=== PATIENT | female | born 1945 | race Caucasian/White ===

== ENCOUNTER 2018-07-03 02:23 | Inpatient (IN) ==
[2018-07-03] MEDS ORDERED: Pantoprazole Inj 80 MG in Sodium Chlor 0.9% Inj 50 ML IV.SIG ONE (02:52)
[2018-07-03 03:22] LABS: Baso % (Auto) 0.2 % (0.0-2.0); Eos % (Auto) 0.1 % (0.0-4.0); Hemoglobin 9.4 gm/dL (11.6-15.3); Lymph # (Auto) 0.7 th/mm3 (1.0-4.8); Lymph % (Auto) 3.4 % (9.0-44.0); Mean Corpuscular HGB Conc 31.3 % (32.0-36.0); Mean Corpuscular Hemoglobin 25.1 pg (27.0-34.0); Mean Corpuscular Volume 80.2 fL (80.0-100.0); Mean Platelet Volume 8.6 fL (7.0-11.0); Mono % (Auto) 4.7 % (0.0-8.0); Neut # (Auto) 19.8 th/mm3 (1.8-7.7); Neut % (Auto) 91.6 % (16.0-70.0); Platelet Count 223 th/mm3 (150-450); Red Blood Count 3.74 mil/mm3 (4.00-5.30); Red Cell Distribution Width 16.9 % (11.6-17.2); White Blood Count 21.6 th/mm3 (4.0-11.0)
--- NOTE | 2018-07-03 03:27 | ED ---
HPI General Chief complaint: GI Bleed Stated complaint: medical Time Seen by Provider: 07/03/18 02:40 Source: patient, EMS, RN notes reviewed and old records reviewed Mode of arrival: EMS Limitations: other (poor historian) History of Present Illness HPI Narrative: 72-year-old female presents by ambulance with history of 102 fever and coffee-ground emesis. When they arrived on scene her oxygen saturation was in the 70s. Patient denies any concurrent complaints and states she does not remember throwing up before. History is limited from patient. Related Data Allergies Allergy/AdvReac Type Severity Reaction Status Date / Time adhesive Allergy Severe Unverified 06/02/17 15:29 PAPER TAPE/RAW SKIN Allergy Mild Uncoded 10/18/03 07:54 Review of Systems ROS Unobtainable ROS Unobtainable: other (poor historian) PMFSH History History Provided By: Document Examiner / EMT (COPD) Social History Social History Substance History: No History of Abuse Smoking Status: Former smoker Tobacco Type: Cigarettes How Often Do You Have a Drink Containing Alcohol: Never Immunization History Tetanus Immunization: >5 Years Hx Influenza Vaccine This Season: No Exam Narrative Exam Narrative: GENERAL: 72 y/o female in no apparent distress SKIN: Focused skin assessment warm/dry. HEAD: Atraumatic. Normocephalic. EYES: Pupils equal and round. No scleral icterus. No injection or drainage. ENT: No nasal bleeding or discharge. Mucous membranes pink and moist. NECK: Trachea midline. No JVD. CARDIOVASCULAR: Regular rate and rhythm. RESPIRATORY: No accessory muscle use. Clear to auscultation. Breath sounds equal bilaterally. GASTROINTESTINAL: Abdomen soft, diffusely ttp, nondistended. no rebound MUSCULOSKELETAL: No obvious deformities. No clubbing. No cyanosis. No edema. NEUROLOGICAL: Awake. moevs all extremities. Normal speech. Course Reevaluation(s) Reevaluation #1: Imaging shows diverticulitis and pneumonia. Given broad- spectrum coverage with vancomycin and Zosyn. Patient has elevated lactate, leukocytosis, tachycardia but blood pressure is stable. Patient was also given Protonix and octreotide given report of coffee-ground emesis. Her hemoglobins will need to be trended. Patient's troponin is elevated but she has no active chest pain. Will hold aspirin given report of coffee-ground emesis and setting of above. She agrees to admission for further care Consultations Consultation #1: dr ruiz agrees to admit Initial Documented Vital Signs Pulse Rate 105 H 07/03/18 02:30 Respiratory Rate 27 H 07/03/18 02:30 Blood Pressure 136/68 07/03/18 02:30 Pulse Oximetry 100 07/03/18 02:30 Last Documented Vital Signs Pulse Rate 105 H 07/03/18 05:05 Respiratory Rate 20 07/03/18 05:05 Blood Pressure 118/57 L 07/03/18 05:05 Pulse Oximetry 91 L 07/03/18 05:05 Medical Decision Making MDM Narrative Medical decision making narrative: will check labs, imaging and place on protonix and octrotide while following testing Medical Screen Exam Complete: Yes Emergency Medical Condition: Yes Differential Diagnosis Differential Diagnosis: anemia, gi bleed, pneumonia, uti.... Lab Data Lab results reviewed: Yes I reviewed the patient's lab results. Result diagrams: 07/03/18 03:00 07/03/18 03:00 Lab Results 07/03/18 07/03/18 07/03/18 Range/Units 03:00 03:00 03:00 WBC (4.0-11.0) th/mm3 RBC (4.00-5.30) mil/mm3 Hgb (11.6-15.3) gm/dL Hct (35.0-46.0) % MCV (80.0-100.0) fL MCH (27.0-34.0) pg MCHC (32.0-36.0) % RDW (11.6-17.2) % Plt Count (150-450) th/mm3 MPV (7.0-11.0) fL Neut % (Auto) (16.0-70.0) % Lymph % (Auto) (9.0-44.0) % [place] % (Auto) (0.0-8.0) % Eos % (Auto) (0.0-4.0) % Baso % (Auto) (0.0-2.0) % Neut # (Auto) (1.8-7.7) th/mm3 Lymph # (Auto) (1.0-4.8) th/mm3 [place] # (Auto) (0.0-0.9) th/mm3 Eos # (Auto) (0.0-0.4) th/mm3 Baso # (Auto) (0.0-0.2) th/mm3 WBC Differential Differential Comment PT 10.8 (9.8-11.6) sec INR 1.1 Ratio APTT 21.2 L (24.3-30.1) sec Sodium 147 H (136-145) meq/L Potassium 3.7 (3.5-5.1) meq/L Chloride 113 H (98-107) meq/L Carbon Dioxide 25.4 (21.0-32.0) meq/L Anion Gap 9 (5-15) meq/L BUN 28 H (7-18) mg/dL Creatinine 0.92 (0.50-1.00) mg/dL Estimated GFR 60 L (>89) mL/min Random Glucose 100 (74-106) mg/dL Lactic Acid (0.4-2.0) mmol/L Calcium 7.4 L* (8.5-10.1) mg/dL Prot Corrected Calcium 8.2 L (8.5-10.1) mg/dL Magnesium 1.8 (1.5-2.5) mg/dL Total Bilirubin 0.2 (0.2-1.0) mg/dL AST 23 (15-37) U/L ALT 17 (10-53) U/L Alkaline Phosphatase 30 L (45-117) U/L Ammonia 14 (11-32) mcmol/L Troponin I 0.48 H (0.02-0.05) ng/mL Total Protein 5.7 L (6.4-8.2) g/dL Albumin 2.3 L (3.4-5.0) g/dL Blood Type Blood Type Recheck Antibody Screen 07/03/18 07/03/18 07/03/18 Range/Units 03:00 03:00 03:00 WBC 21.6 H (4.0-11.0) th/mm3 RBC 3.74 L (4.00-5.30) mil/mm3 Hgb 9.4 L (11.6-15.3) gm/dL Hct 30.0 L (35.0-46.0) % MCV 80.2 (80.0-100.0) fL MCH 25.1 L (27.0-34.0) pg MCHC 31.3 L (32.0-36.0) % RDW 16.9 (11.6-17.2) % Plt Count 223 (150-450) th/mm3 MPV 8.6 (7.0-11.0) fL Neut % (Auto) 91.6 H (16.0-70.0) % Lymph % (Auto) 3.4 L (9.0-44.0) % [place] % (Auto) 4.7 (0.0-8.0) % Eos % (Auto) 0.1 (0.0-4.0) % Baso % (Auto) 0.2 (0.0-2.0) % Neut # (Auto) 19.8 H (1.8-7.7) th/mm3 Lymph # (Auto) 0.7 L (1.0-4.8) th/mm3 [place] # (Auto) 1.0 H (0.0-0.9) th/mm3 Eos # (Auto) 0.0 (0.0-0.4) th/mm3 Baso # (Auto) 0.0 (0.0-0.2) th/mm3 WBC Differential . Differential Comment Auto diff final PT (9.8-11.6) sec INR Ratio APTT (24.3-30.1) sec Sodium (136-145) meq/L Potassium (3.5-5.1) meq/L Chloride (98-107) meq/L Carbon Dioxide (21.0-32.0) meq/L Anion Gap (5-15) meq/L BUN (7-18) mg/dL Creatinine (0.50-1.00) mg/dL Estimated GFR (>89) mL/min Random Glucose (74-106) mg/dL Lactic Acid 2.7 H (0.4-2.0) mmol/L Calcium (8.5-10.1) mg/dL Prot Corrected Calcium (8.5-10.1) mg/dL Magnesium (1.5-2.5) mg/dL Total Bilirubin (0.2-1.0) mg/dL AST (15-37) U/L ALT (10-53) U/L Alkaline Phosphatase (45-117) U/L Ammonia (11-32) mcmol/L Troponin I (0.02-0.05) ng/mL Total Protein (6.4-8.2) g/dL Albumin (3.4-5.0) g/dL Blood Type A Positive Blood Type Recheck Required Antibody Screen Negative Imaging Data Attestation: I personally reviewed and interpreted this imaging study as follows : Radiologist's impression: Abdomen/Pelvis CT 07/03/18 02:52 CONCLUSION: 1. Findings consistent with moderate sigmoid diverticulitis. No perforation or abscess at this time. Consider colonoscopy following appropriate course of treatment given the long segment involvement to exclude possible malignancy. 2. Moderate gastric distention. 3. Moderate stool in the rectum. 4. 9 mm calcification in the posterior right bladder near the UVJ. No significant right-sided hydronephrosis. 5. 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 Generally, sub-2 cm visceral artery aneurysms are not treated. 6. Indeterminate density 3.3 cm cystic lesion in the posterior mid left kidney. Consider 6 month follow-up ultrasound exam. 7. L2 compression fracture of unknown chronicity given the lack of recent prior exams. Status post cement augmentation at L4. Chest X-Ray 07/03/18 02:55 CONCLUSION: 1. Patchy airspace disease in the left lower lobe concerning for pneumonia given history . Discharge Plan Discharge Disposition Patient Disposition: 30 Still Patient Discharge Details Diagnosis: Sepsis, Diverticulitis, Pneumonia, Elevated troponin, Coffee ground emesis Physicians Team ED Provider: Dennise Peralta Primary Care Provider: UNKNOWN, Discharge Interventions Interventions: Vital Signs Last Done: 07/03/18 05:05 Status ED Status: Admitted Patient
--- NOTE | 2018-07-03 03:34 | XR ---
EXAM DATE: 07/03/2018 3:24 AM EDT AGE/SEX: 72 years / Female INDICATIONS: Fever. CLINICAL DATA: This is the patient's initial encounter. Patient reports that signs and symptoms have been present for 1 day and indicates a pain score of 0/10. MEDICAL/SURGICAL HISTORY: None. None. COMPARISON: No prior exams available for comparison. FINDINGS: Patchy airspace disease in the left lower lung zone. Senescent changes in the upper lobes bilaterally . The cardiomediastinal contours are unremarkable. Osseous structures are intact. CONCLUSION: 1. Patchy airspace disease in the left lower lobe concerning for pneumonia given history . Electronically signed by: Barrie Payton MD 07/03/2018 3:33 AM EDT
[2018-07-03 03:37] LABS: Activated Partial Thrombo Time 21.2 sec (24.3-30.1); INR 1.1 Ratio; Prothrombin Time 10.8 sec (9.8-11.6)
[2018-07-03] MEDS ORDERED: Vancomycin Inj 1 GM/200 ML PIGGYBACK IV.SIG ONE (03:37)
[2018-07-03] MEDS ORDERED: Piperacil/Tazo 4.5 GM Premix 4.5 GM/100 ML BAG IV.SIG ONE (03:37)
[2018-07-03 03:55] LABS: Albumin 2.3 g/dL (3.4-5.0); Calcium 7.4 mg/dL (8.5-10.1); Carbon Dioxide 25.4 meq/L (21.0-32.0); Magnesium 1.8 mg/dL (1.5-2.5); Potassium 3.7 meq/L (3.5-5.1); Total Protein 5.7 g/dL (6.4-8.2); Troponin I 0.48 ng/mL (0.02-0.05)
[2018-07-03] MEDS ORDERED: Sodium Chlor 0.9% Inj 500 ML IV.SIG SCH (04:00)
[2018-07-03] MEDS: Octreotide Inj 500 MCG in Sodium Chlor 0.9% Inj 500 ML IV.CONT SCH ×2 (04:17→17:37)
--- NOTE | 2018-07-03 04:59 | CT ---
EXAM DATE: 07/03/2018 4:42 AM EDT AGE/SEX: 72 years / Female INDICATIONS: Abdomen pain. CLINICAL DATA: This is the patient's initial encounter. Patient reports that signs and symptoms have been present for 1 day and indicates a pain score of 5/10. MEDICAL/SURGICAL HISTORY: Chronic obstructive pulmonary disease. Emphysema. Cholecystectomy. Hysterectomy. ORAL CONTRAST: No oral contrast ingested. RADIATION DOSE: 4.65 CTDI (mGy) COMPARISON: [facility], CT ABDOMEN & PELVIS W CONTRAST, 01/06/2015. . TECHNIQUE: Multiple contiguous axial images were obtained through the abdomen and pelvis following b olus infusion of 75 ml Omnipaque 350 (iohexol) nonionic water-soluble contrast as a single exam dos e. No oral contrast ingested. Using automated exposure control and adjustment of the mA and/or kV ac cording to patient size, radiation dose was kept as low as reasonably achievable to obtain optimal di agnostic quality images. DICOM format image data is available electronically for review and comparis on. FINDINGS: LOWER LUNGS: Patchy groundglass opacities at the lung bases. Coronary artery calcifications. LIVER: The liver has a homogeneous density without space-occupying lesion. There is no dilation of t he biliary tree. Gallbladder is surgically absent. SPLEEN: Homogeneous density without enlargement. PANCREAS: Unremarkable without mass or calcification. KIDNEYS: Kidneys demonstrate symmetrical enhancement. Indeterminate density 3.3 cm cystic lesion in the posterior mid left kidney. 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 No radiopaque renal calcu li or hydronephrosis. ADRENAL GLANDS: Unremarkable. AORTA: Nai-aneurysmal. BOWEL/MESENTERY: Moderate sigmoid diverticulosis with diffuse sigmoid wall thickening and surroundin g inflammatory change. No free fluid or drainable fluid collections. No free air. Moderate amount sto ol in the rectum. Stomach is moderately distended. Remainder of the bowel is unremarkable. ABDOMINAL WALL: Intact. RETROPERITONEUM: No evidence of adenopathy in the retrocrural, para-aortic, or deep pelvic regions. BLADDER: Contours are smooth. 9 mm calcified opacity in the posterior right bladder near the UVJ. REPRODUCTIVE: Uterus is surgically absent. BONY STRUCTURES: Mild compression deformity of the superior endplate at L2. Status post cement augme ntation at L4. Left hip arthroplasty with right femoral fixation. CONCLUSION: 1. Findings consistent with moderate sigmoid diverticulitis. No perforation or abscess at this time. Consider colonoscopy following appropriate course of treatment given the long segment involvement to exclude possible malignancy. 2. Moderate gastric distention. 3. Moderate stool in the rectum. 4. 9 mm calcification in the posterior right bladder near the UVJ. No significant right-sided hydro nephrosis. 5. 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 Generally, sub-2 cm visceral artery aneurysms are not treated. 6. Indeterminate density 3.3 cm cystic lesion in the posterior mid left kidney. Consider 6 month fol low-up ultrasound exam. 7. L2 compression fracture of unknown chronicity given the lack of recent prior exams. Status post c ement augmentation at L4. Electronically signed by: Barrie Payton MD 07/03/2018 4:58 AM EDT
[2018-07-03] MEDS ORDERED: Vancomycin Inj 1,000 MG in Sodium Chlor 0.9% Inj 250 ML IV.SIG ONE (05:00)
[2018-07-03] MEDS ORDERED: Vancomycin Consult Pharmacy OTHER PRN (05:09)
[2018-07-03] MEDS ORDERED: Bisacodyl 10 MG Supp RECTAL PRN (05:10)
[2018-07-03] MEDS ORDERED: Acetaminophen 325 MG Tablet PO PRN (05:10)
--- NOTE | 2018-07-03 05:27 | P.HPIM ---
History of Present Illness Primary Care Physician: UNKNOWN History of Present Illness: This is a 72-year-old female with a PMH of HTN, COPD and Dementia who was sent to the ER from SNF for episode of coffee-ground emesis and hypoxia. Pt unable to provide much history due to dementia. Per report, pt also noted to have Temp 102, upon EMS arrival, O2 sat 70's. Pt with no c/o chest pain or SOB. On arrival, BP 136/68, HR 100% on NRM, currently 91% on 2L NC. WBC 21.6. Hemoglobin 9.4, previous and 9.2 on 05-05. INR 1.1. Chemistry essentially unremarkable. Lactic Acid 2.7. Troponin 0.48. CXR with patchy airspace disease left lower lobe concerning for pneumonia. CT Abdomen/Pelvis moderate sigmoid diverticulitis, no perforation or abscess, moderate gastric distention. S/p Vanc/Zosyn in ER, currently on Protonix/Octreotide gtt. - Diagnosis (1) Sepsis (2) PNA (pneumonia) (3) GI bleed (4) COPD (chronic obstructive pulmonary disease) (5) Elevated troponin Review of Systems PAST FAMILY HISTORY: Unable to obtain unobtainable due to mental status PMFSH - History History Provided By: Recreation Program Coordinator / EMT (COPD) - Tobacco History Smoking Status: Former smoker Tobacco Type: Cigarettes - Alcohol History How Often Do You Have a Drink Containing Alcohol: Never - Substance Use History Substance History: No History of Abuse - Immunization History Tetanus Immunization: >5 Years Hx Influenza Vaccine This Season: No Medications and Allergies Active Medications: Active Medications Acetaminophen (Tylenol) 650 mg PO Q4H PRN PRN Reason: Temp > 100.4 Al Hydroxide/Mg Hydroxide (Milk Of Magnesia Liq) 30 ml PO Q12H PRN PRN Reason: Mild Constipation Bisacodyl (Dulcolax Supp) 10 mg RECTAL DAILY PRN PRN Reason: SEVERE CONSITIPATION Octreotide Acetate 500 mcg/ (Sodium Chloride) 500.5 mls @ 50.05 mls/hr IV.CONT .Q10H EVA Last Admin: 07/03/18 04:17 Dose: 50 mcg/hr, 50.05 mls/hr Sodium Chloride (Ns Inj) 500 mls @ 0 mls/hr IV.SIG BOLUS EVA Last Admin: 07/03/18 04:17 Dose: 500 mls/hr Vancomycin HCl 1,000 mg/ (Sodium Chloride) 250 mls @ 200 mls/hr IV.SIG ONCE ONE Stop: 07/03/18 06:14 Sodium Chloride (Ns Inj) 1,000 mls @ 100 mls/hr IV.CONT .Q10H EVA Piperacillin/Tazobactam/Dextrose (Zosyn 4.5 Gm Premix) 4.5 gm in 100 mls @ 200 mls/hr IV.SIG Q6H EVA Lactulose (Lactulose Liq) 30 ml PO DAILY PRN PRN Reason: SEVERE CONSITIPATION Ondansetron HCl (Zofran Inj) 4 mg IV.PUSH Q6H PRN PRN Reason: NAUSEA OR VOMITING Pharmacy Profile Note (Vancomycin Consult Pharmacy) 1 each OTHER UNSCH PRN PRN Reason: Pharmacy to dose Senna/Docusate Sodium (Jordyn-Colace) 1 tab PO BID EVA Sennosides (Senokot) 17.2 mg PO Q12H PRN PRN Reason: Moderate Constipation Sodium Chloride (Ns Flush) 2 ml IV.FLUSH PRN PRN PRN Reason: FLUSH AFTER USING IV ACCESS Allergies Allergy/AdvReac Type Severity Reaction Status Date / Time adhesive Allergy Severe Unverified 06/02/17 15:29 PAPER TAPE/RAW SKIN Allergy Mild Uncoded 10/18/03 07:54 Home Medications Medication Instructions Recorded Confirmed Type calcium carb and citrate-vitD3 07/03/18 History dvuejajl-gpftockm-npt citrate 07/03/18 History [Nauzene] dicyclomine 20 mg PO QID 07/03/18 07/03/18 History donepezil 10 mg PO DAILY 07/03/18 07/03/18 History escitalopram oxalate 10 mg PO DAILY 07/03/18 07/03/18 History morphine 30 mg PO Q8HR PRN 07/03/18 07/03/18 History omeprazole magnesium 20.6 mg PO 07/03/18 History potassium chloride 20 meq PO DAILY 07/03/18 07/03/18 History prednisone 5 mg PO DAILY 07/03/18 07/03/18 History temazepam [Restoril] 07/03/18 History trazodone 100 mg PO DAILY 07/03/18 07/03/18 History trazodone 200 mg PO DAILY 07/03/18 07/03/18 History Exam Vital signs: Vital Signs 07/03/18 02:30 07/03/18 02:38 07/03/18 04:19 Pulse Rate 105 H 106 H Respiratory Rate 27 H 26 H Blood Pressure 136/68 136/68 Pulse Oximetry 100 92 L 07/03/18 05:05 Pulse Rate 105 H Respiratory Rate 20 Blood Pressure 118/57 L Pulse Oximetry 91 L Intake & Output 07/02/18 07/02/18 07/03/18 06:59 18:59 06:59 Weight 45.569 kg Narrative: PE: GENERAL: Elderly white female in no acute distress. SKIN: Focused skin assessment warm and dry. HEENT: PERRLA, EOMI. No scleral icterus or conjunctival pallor. No lid lag or facial droop. CARDIOVASCULAR: Regular rate and rhythm. No obvious murmurs to auscultation. No chest tenderness to palpation. RESPIRATORY: No obvious rhonchi or wheezing. Clear to auscultation. Breath sounds equal bilaterally. GASTROINTESTINAL: Abdomen soft, non-tender, nondistended. BS normal. MUSCULOSKELETAL: Extremities without clubbing, cyanosis, or edema. No obvious deformities. NEUROLOGICAL: Awake, alert, answers few questions. No focal neurologic deficits. Moving both upper and lower extremities spontaneously. PSYCHIATRIC: Appropriate mood and affect. Insight and judgment normal. Results - Labs CBC & Chem 7: 07/03/18 03:00 07/03/18 03:00 Labs: Short CBC 07/03/18 Range/Units 03:00 WBC 21.6 H (4.0-11.0) th/mm3 Hgb 9.4 L (11.6-15.3) gm/dL Hct 30.0 L (35.0-46.0) % Plt Count 223 (150-450) th/mm3 BMP 07/03/18 03:00 Sodium 147 H Potassium 3.7 Chloride 113 H Carbon Dioxide 25.4 BUN 28 H Creatinine 0.92 Calcium 7.4 L* Cardiac Enzymes 07/03/18 Range/Units 03:00 Troponin I 0.48 H (0.02-0.05) ng/mL Liver Function 07/03/18 Range/Units 03:00 Total Bilirubin 0.2 (0.2-1.0) mg/dL AST 23 (15-37) U/L ALT 17 (10-53) U/L Alkaline Phosphatase 30 L (45-117) U/L Albumin 2.3 L (3.4-5.0) g/dL - Imaging Impressions Abdomen/Pelvis CT 07/03/18 02:52 CONCLUSION: 1. Findings consistent with moderate sigmoid diverticulitis. No perforation or abscess at this time. Consider colonoscopy following appropriate course of treatment given the long segment involvement to exclude possible malignancy. 2. Moderate gastric distention. 3. Moderate stool in the rectum. 4. 9 mm calcification in the posterior right bladder near the UVJ. No significant right-sided hydronephrosis. 5. 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 Generally, sub-2 cm visceral artery aneurysms are not treated. 6. Indeterminate density 3.3 cm cystic lesion in the posterior mid left kidney. Consider 6 month follow-up ultrasound exam. 7. L2 compression fracture of unknown chronicity given the lack of recent prior exams. Status post cement augmentation at L4. Chest X-Ray 07/03/18 02:55 CONCLUSION: 1. Patchy airspace disease in the left lower lobe concerning for pneumonia given history . Caprini VTE Risk Assessment Caprini VTE Risk Assessment: No/Low Risk (score <= 1) VTE Pharmacological Exception Reason: Active bleeding Caprini Risk Assessment Model: Point Value = 1 Point Value = 2 Point Value = 3 Point Value = 5 Age 41-60 Minor surgery BMI > 25 kg/m2 Swollen legs Varicose veins or History of unexplained or recurrent spontaneous Oral contraceptives or hormone replacement Sepsis (< 1 month) Serious lung disease, including pneumonia (< 1 month) Abnormal pulmonary function Acute myocardial infarction Congestive heart failure (< 1 month) History of inflammatory bowel disease Medical patient at bed rest Age 61-74 Arthroscopic surgery Major open surgery (> 45 min) Laparoscopic surgery (> 45 min) Malignancy Confined to bed (> 72 hours) Immobilizing plaster cast Central venous access Age >= 75 History of VTE Family history of VTE Factor V Leiden Prothrombin [id number] Lupus anticoagulant Anticardiolipin antibodies Elevated serum homocysteine Heparin-induced thrombocytopenia Other congenital or acquired thrombophilia Stroke (< 1 month) Elective arthroplasty Hip, pelvis, or leg fracture Acute spinal cord injury (< 1 month) Prophylaxis Regimen: Total Risk Factor Score Risk Level Prophylaxis Regimen 0-1 Low Early ambulation 2 Moderate Order ONE of the following: *Sequential Compression Device (SCD) *Heparin 5000 units SQ BID 3-4 Higher Order ONE of the following medications: *Heparin 5000 units SQ TID *Enoxaparin/Lovenox 40 mg SQ daily (WT < 150 kg, CrCl > 30 mL/min) *Enoxaparin/Lovenox 30 mg SQ daily (WT < 150 kg, CrCl > 10-29 mL/min) *Enoxaparin/Lovenox 30 mg SQ BID (WT < 150 kg, CrCl > 30 mL/min) AND/OR *Sequential Compression Device (SCD) 5 or more Highest Order ONE of the following medications: *Heparin 5000 units SQ TID (Preferred with Epidurals) *Enoxaparin/Lovenox 40 mg SQ daily (WT < 150 kg, CrCl > 30 mL/min) *Enoxaparin/Lovenox 30 mg SQ daily (WT < 150 kg, CrCl > 10-29 mL/min) *Enoxaparin/Lovenox 30 mg SQ BID (WT < 150 kg, CrCl > 30 mL/min) AND *Sequential Compression Device (SCD) Assessment and Plan - Assessment (1) Sepsis Code(s): A41.9 - Sepsis, unspecified organism Status: Acute (2) PNA (pneumonia) Code(s): J18.9 - Pneumonia, unspecified organism Status: Acute (3) GI bleed Code(s): K92.2 - Gastrointestinal hemorrhage, unspecified Status: Acute (4) COPD (chronic obstructive pulmonary disease) Code(s): J44.9 - Chronic obstructive pulmonary disease, unspecified Status: Acute (5) Elevated troponin Code(s): R74.8 - Abnormal levels of other serum enzymes Status: Acute - Plan A/P: 1. Sepsis: Temp 102, HR 105, WBC 21, Source-PNA, likely compounded by diverticulitis, s/p Vanc/Zosyn in ER, will continue w/ IV Abx, follow up cultures, IVF, repeat Lactic Acid. 2. PNA: CXR w/ LLL infiltrate, images reviewed, +hypoxia on arrival w/ O2 sat 70's, continue IV Abx, DuoNeb prn, monitor O2. 3. COPD: Chronic Respiratory Failure, DuoNeb prn, monitor O2 as above. 4. GI Bleed: +coffee-ground emesis, currently on Protonix/Octreotide gtt, Hgb 9.4, previously 9.2 on 7/2/18. Consult GI for further eval/intervention, repeat Hgb/Hct for trend, transfuse as needed. 5. Elevated Trop: Trop 0.48, no c/o chest pain, likely secondary to demand, will hold anticoagulation in light of acute GI Bleed, check serial cardiac enzymes for trend, Consult Cardiology as needed. 6. DVT Prophylaxis: SCD/Teds 7. Social work for d/c planning as needed 8. Case discussed w/ ER physician at length, labs/records/imaging reviewed by me.
[2018-07-03] MEDS: Sod Chloride 0.9% Inj 1,000 ML IV.CONT SCH ×2 (07:28→16:36)
[2018-07-03] MEDS ORDERED: Sod Chloride 0.9% Inj 1,000 ML IV.SIG SCH (08:15)
--- NOTE | 2018-07-03 08:16 | P.PNADD ---
Addendum to Inpatient Note Additional information: Ms. Banegas was admitted due to pneumonia, sepsis, diverticulitis. Her BP was very low this morning with systolic around 70s. We started her on IV fluid bolus. BP is improving. Discussed with her son ([phone]) who is also patient's power of environmental attorney. He would like to continue aggressive treatment and full code. We gave one L of NS bolus which transiently improved patient's blood pressure. However, patient progressively became more lethargic and her blood pressure dropped again. We started patient on normal saline bolus using 2 IV access and subsequently transferred patient to critical care medicine for closer observation as well as further management. I discussed the case with critical care attending.
[2018-07-03] MEDS: Senna/Docusate Sodium 8.6/50 MG Tablet PO SCH ×2 (08:56→20:41)
[2018-07-03] MEDS: Piperacil/Tazo 4.5 GM Premix 4.5 GM/100 ML BAG IV.SIG SCH ×3 (12:04→21:23)
--- NOTE | 2018-07-03 12:30 | P.CONGI ---
History of Present Illness Consult date: 07/03/18 Chief complaint: sepsis, GI bleed, elevated troponin, diverticuliti History of Present Illness: This is a 72-year-old female with a PMH of HTN, COPD, diverticulitis and Dementia who was sent to the ER from SNF for episode of coffee-ground emesis, fever and hypoxia. Pt is alert and oriented, able to answer simple questions but unable to provide accurate history due to dementia. On admission Hemoglobin 9.4, previously on 05-05 was 9.2 . labs revealed high Lactic Acid and Troponin. CXR with patchy airspace disease left lower lobe concerning for pneumonia. CT Abdomen/Pelvis moderate sigmoid diverticulitis, no perforation or abscess, moderate gastric distention. Abx started. currently on Protonix/Octreotide gtt. Son by bed side, wants aggressive tx. States pt has hx of diverticulitis few yrs ago, colonoscopy was yrs ago as well. Patient has pain in LLQ area on palpation. 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 (COPD) - Tobacco History Smoking Status: Former smoker Tobacco Type: Cigarettes - Alcohol History How Often Do You Have a Drink Containing Alcohol: Never - Substance Use History Substance History: No History of Abuse - Immunization History Tetanus Immunization: >5 Years Hx Influenza Vaccine This Season: No <Nikia Pires - Last Filed: 07/03/18 13:50> Medications and Allergies Active Medications: Active Medications Acetaminophen (Tylenol) 650 mg PO Q4H PRN PRN Reason: Temp > 100.4 Al Hydroxide/Mg Hydroxide (Milk Of Magnharshad Liq) 30 ml PO Q12H PRN PRN Reason: Mild Constipation Albuterol (Duoneb Neb (Prn)) 1 ampul NEB Q4HR NEB PRN PRN Reason: SOB/WHEEZING Bisacodyl (Dulcolax Supp) 10 mg RECTAL DAILY PRN PRN Reason: SEVERE CONSITIPATION Octreotide Acetate 500 mcg/ (Sodium Chloride) 500.5 mls @ 50.05 mls/hr IV.CONT .Q10H [facility] Last Admin: 07/03/18 04:17 Dose: 50 mcg/hr, 50.05 mls/hr Sodium Chloride (Ns Inj) 500 mls @ 0 mls/hr IV.SIG BOLUS [facility] Last Infusion: 07/03/18 05:17 Dose: Infused Sodium Chloride (Ns Inj) 1,000 mls @ 100 mls/hr IV.CONT .Q10H [facility] Last Admin: 07/03/18 07:28 Dose: 100 mls/hr Piperacillin/Tazobactam/Dextrose (Zosyn 4.5 Gm Premix) 4.5 gm in 100 mls @ 200 mls/hr IV.SIG Q6H [facility] Last Admin: 07/03/18 12:04 Dose: 200 mls/hr Levofloxacin/Dextrose (Levaquin 750 Mg Premix Inj) 150 mls @ 100 mls/hr IV.SIG Q24H [facility] Last Admin: 07/03/18 12:04 Dose: 100 mls/hr Lactulose (Lactulose Liq) 30 ml PO DAILY PRN PRN Reason: SEVERE CONSITIPATION Ondansetron HCl (Zofran Inj) 4 mg IV.PUSH Q6H PRN PRN Reason: NAUSEA OR VOMITING Pharmacy Profile Note (Vancomycin Consult Pharmacy) 1 each OTHER UNSCH PRN PRN Reason: Pharmacy to dose Senna/Docusate Sodium (Jordyn-Colace) 1 tab PO BID [facility] Last Admin: 07/03/18 08:56 Dose: Not Given Sennosides (Senokot) 17.2 mg PO Q12H PRN PRN Reason: Moderate Constipation Sodium Chloride (Ns Flush) 2 ml IV.FLUSH PRN PRN PRN Reason: FLUSH AFTER USING IV ACCESS <Nikia Pires - Last Filed: 07/03/18 13:50> Active Medications: Active Medications Acetaminophen (Tylenol) 650 mg PO Q4H PRN PRN Reason: Temp > 100.4 Al Hydroxide/Mg Hydroxide (Milk Of Magnesia Liq) 30 ml PO Q12H PRN PRN Reason: Mild Constipation Albuterol (Duoneb Neb (Prn)) 1 ampul NEB Q4HR NEB PRN PRN Reason: SOB/WHEEZING Bisacodyl (Dulcolax Supp) 10 mg RECTAL DAILY PRN PRN Reason: SEVERE CONSITIPATION Octreotide Acetate 500 mcg/ (Sodium Chloride) 500.5 mls @ 50.05 mls/hr IV.CONT .Q10H [facility] Last Admin: 07/03/18 17:37 Dose: 49.99 mcg/hr, 50.05 mls/hr Sodium Chloride (Ns Inj) 500 mls @ 0 mls/hr IV.SIG BOLUS [facility] Last Infusion: 07/03/18 05:17 Dose: Infused Sodium Chloride (Ns Inj) 1,000 mls @ 100 mls/hr IV.CONT .Q10H [facility] Last Admin: 07/03/18 16:36 Dose: 100 mls/hr Piperacillin/Tazobactam/Dextrose (Zosyn 4.5 Gm Premix) 4.5 gm in 100 mls @ 200 mls/hr IV.SIG Q6H [facility] Last Infusion: 07/03/18 17:07 Dose: Infused Levofloxacin/Dextrose (Levaquin 750 Mg Premix Inj) 150 mls @ 100 mls/hr IV.SIG Q24H [facility] Last Infusion: 07/03/18 16:06 Dose: Infused Vancomycin HCl 750 mg/ Sodium (Chloride) 257.5 mls @ 250 mls/hr IV.SIG Q24H [facility] Lactulose (Lactulose Liq) 30 ml PO DAILY PRN PRN Reason: SEVERE CONSITIPATION Miscellaneous Information ([facility] Ordered Lab Info) 0 each OTHER ONCE ONE Stop: 07/06/18 05:46 Ondansetron HCl (Zofran Inj) 4 mg IV.PUSH Q6H PRN PRN Reason: NAUSEA OR VOMITING Pharmacy Profile Note (Vancomycin Consult Pharmacy) 1 each OTHER UNSCH PRN PRN Reason: Pharmacy to dose Senna/Docusate Sodium (Jordyn-Colace) 1 tab PO BID [facility] Last Admin: 07/03/18 08:56 Dose: Not Given Sennosides (Senokot) 17.2 mg PO Q12H PRN PRN Reason: Moderate Constipation Sodium Chloride (Ns Flush) 2 ml IV.FLUSH PRN PRN PRN Reason: FLUSH AFTER USING IV ACCESS <Zo Rebolledo - Last Filed: 07/03/18 17:55> Allergies Allergy/AdvReac Type Severity Reaction Status Date / Time adhesive Allergy Severe Unverified 06/02/17 15:29 PAPER TAPE/RAW SKIN Allergy Mild Uncoded 10/18/03 07:54 Home Medications Medication Instructions Recorded Confirmed Type calcium carb and citrate-vitD3 07/03/18 History [id number] citrate 07/03/18 History [Nauzene] dicyclomine 20 mg PO QID 07/03/18 07/03/18 History donepezil 10 mg PO DAILY 07/03/18 07/03/18 History escitalopram oxalate 10 mg PO DAILY 07/03/18 07/03/18 History morphine 30 mg PO Q8HR PRN 07/03/18 07/03/18 History omeprazole magnesium 20.6 mg PO 07/03/18 History potassium chloride 20 meq PO DAILY 07/03/18 07/03/18 History prednisone 5 mg PO DAILY 07/03/18 07/03/18 History temazepam [Restoril] 07/03/18 History trazodone 100 mg PO DAILY 07/03/18 07/03/18 History trazodone 200 mg PO DAILY 07/03/18 07/03/18 History Exam Vital signs: Vital Signs 07/03/18 02:30 07/03/18 02:38 07/03/18 04:19 Temperature Pulse Rate 105 H 106 H Respiratory Rate 27 H 26 H Blood Pressure 136/68 136/68 Pulse Oximetry 100 92 L 07/03/18 05:05 07/03/18 06:45 07/03/18 07:00 Temperature 98.4 F Pulse Rate 105 H 88 87 Respiratory Rate 20 22 Blood Pressure 118/57 L 119/69 Pulse Oximetry 91 L 91 L 07/03/18 07:50 07/03/18 08:00 07/03/18 08:04 Temperature 99.3 F Pulse Rate 80 Respiratory Rate 18 Blood Pressure 86/53 L 89/53 L 88/48 L Pulse Oximetry 93 L 07/03/18 08:19 07/03/18 08:30 07/03/18 08:54 Temperature Pulse Rate 79 Respiratory Rate 20 Blood Pressure 98/54 L 90/53 L 95/57 L Pulse Oximetry 94 L 07/03/18 09:00 07/03/18 09:36 07/03/18 09:37 Temperature Pulse Rate 87 Respiratory Rate Blood Pressure 70/49 L 79/45 L Pulse Oximetry 07/03/18 09:42 07/03/18 09:50 Temperature 99.4 F Pulse Rate Respiratory Rate Blood Pressure 75/52 L 104/62 Pulse Oximetry Intake & Output 07/02/18 07/03/18 07/03/18 18:59 06:59 18:59 Intake Total 650 / 650 1250 / 1250 Balance 650 / 650 1250 / 1250 Weight 45.569 kg Intake: IV 650 / 650 1250 / 1250 Protonix Inj 80 MG In NS Inj 50 50 / 50 ML @ 600 mls/hr IV.SIG BOLUS ONE Rx#:[id number] Zosyn 4.5 GM Premix 4.5 gm In 100 / 100 100 ml @ 200 mls/hr IV.SIG ONCE ONE Rx#:[id number] NS Inj 1,000 ML @ 999 mls/hr IV 1000 / 1000 .SIG .Q1H1M [facility] Rx#:[id number] NS Inj 500 ML @ Wide Open IV. 500 / 500 SIG BOLUS [facility] Rx#:[id number] Vancomycin Inj 1,000 MG In NS 250 / 250 Inj 250 ML @ 200 mls/hr IV.SIG ONCE ONE Rx#:[id number] Other: Date of Last Bowel Movement 07/03/18 <Nikia Pires - Last Filed: 07/03/18 13:50> Vital signs: Vital Signs 07/03/18 02:30 07/03/18 02:38 07/03/18 04:19 Temperature Pulse Rate 105 H 106 H Respiratory Rate 27 H 26 H Blood Pressure 136/68 136/68 Pulse Oximetry 100 92 L 07/03/18 05:05 07/03/18 06:45 07/03/18 07:00 Temperature 98.4 F Pulse Rate 105 H 88 87 Respiratory Rate 20 22 Blood Pressure 118/57 L 119/69 Pulse Oximetry 91 L 91 L 07/03/18 07:50 07/03/18 08:00 07/03/18 08:04 Temperature 99.3 F Pulse Rate 80 Respiratory Rate 18 Blood Pressure 86/53 L 89/53 L 88/48 L Pulse Oximetry 93 L 07/03/18 08:19 07/03/18 08:30 07/03/18 08:54 Temperature Pulse Rate 79 Respiratory Rate 20 Blood Pressure 98/54 L 90/53 L 95/57 L Pulse Oximetry 94 L 07/03/18 09:00 07/03/18 09:36 07/03/18 09:37 Temperature Pulse Rate 87 Respiratory Rate Blood Pressure 70/49 L 79/45 L Pulse Oximetry 07/03/18 09:42 07/03/18 09:50 07/03/18 10:00 Temperature 99.4 F Pulse Rate 75 Respiratory Rate Blood Pressure 75/52 L 104/62 Pulse Oximetry 07/03/18 11:00 07/03/18 12:00 07/03/18 13:00 Temperature 98.6 F Pulse Rate 84 81 73 Respiratory Rate 16 Blood Pressure 119/62 Pulse Oximetry 100 07/03/18 14:00 07/03/18 15:00 07/03/18 16:00 Temperature 97.7 F Pulse Rate 73 66 66 Respiratory Rate 23 Blood Pressure 83/50 L Pulse Oximetry 100 07/03/18 17:00 Temperature Pulse Rate 71 Respiratory Rate Blood Pressure Pulse Oximetry Intake & Output 07/02/18 07/03/18 07/03/18 18:59 06:59 18:59 Intake Total 650 / 650 3100.5 / 3100.5 Balance 650 / 650 3100.5 / 3100.5 Weight 45.569 kg Intake: IV 650 / 650 3100.5 / 3100.5 SandoSTATIN Inj 500 MCG In NS 500.5 / 500.5 Inj 500 ML @ 50 MCG/HR 50.05 mls/hr IV.CONT .Q10H [facility] Rx#: [id number] NS Inj 1,000 ML @ 100 mls/hr IV 1000 / 1000 .CONT .Q10H [facility] Rx#:[id number] Levaquin 750 mg Premix Inj 150 150 / 150 ML @ 100 mls/hr IV.SIG Q24H [facility] Rx#:[id number] Protonix Inj 80 MG In NS Inj 50 50 / 50 ML @ 600 mls/hr IV.SIG BOLUS ONE Rx#:[id number] Zosyn 4.5 GM Premix 4.5 gm In 100 / 100 200 / 200 100 ml @ 200 mls/hr IV.SIG Q6H [facility] Rx#:[id number] NS Inj 1,000 ML @ 999 mls/hr IV 1000 / 1000 .SIG .Q1H1M [facility] Rx#:[id number] NS Inj 500 ML @ Wide Open IV. 500 / 500 SIG BOLUS [facility] Rx#:[id number] Vancomycin Inj 1,000 MG In NS 250 / 250 Inj 250 ML @ 200 mls/hr IV.SIG ONCE ONE Rx#:[id number] Other: Date of Last Bowel Movement 07/03/18 07/03/18 <Zo Rebolledo - Last Filed: 07/03/18 17:55> Results - Labs CBC & Chem 7: 07/03/18 03:00 07/03/18 03:00 Labs: Laboratory Results - last 24 hr 07/03/18 07/03/18 07/03/18 03:00 03:00 03:00 WBC RBC Hgb Hct MCV MCH MCHC RDW Plt Count MPV Neut % (Auto) Lymph % (Auto) Gilliam % (Auto) Eos % (Auto) Baso % (Auto) Neut # (Auto) Lymph # (Auto) Gilliam # (Auto) Eos # (Auto) Baso # (Auto) WBC Differential Differential Comment PT 10.8 INR 1.1 APTT 21.2 L Sodium 147 H Potassium 3.7 Chloride 113 H Carbon Dioxide 25.4 Anion Gap 9 BUN 28 H Creatinine 0.92 Estimated GFR 60 L POC Glucose Random Glucose 100 Lactic Acid Calcium 7.4 L* Prot Corrected Calcium 8.2 L Magnesium 1.8 Total Bilirubin 0.2 AST 23 ALT 17 Alkaline Phosphatase 30 L Ammonia 14 Troponin I 0.48 H Total Protein 5.7 L Albumin 2.3 L Blood Type Blood Type Recheck Antibody Screen 07/03/18 07/03/18 07/03/18 03:00 03:00 03:00 WBC 21.6 H RBC 3.74 L Hgb 9.4 L Hct 30.0 L MCV 80.2 MCH 25.1 L MCHC 31.3 L RDW 16.9 Plt Count 223 MPV 8.6 Neut % (Auto) 91.6 H Lymph % (Auto) 3.4 L Gilliam % (Auto) 4.7 Eos % (Auto) 0.1 Baso % (Auto) 0.2 Neut # (Auto) 19.8 H Lymph # (Auto) 0.7 L Gilliam # (Auto) 1.0 H Eos # (Auto) 0.0 Baso # (Auto) 0.0 WBC Differential . Differential Comment Auto diff final PT INR APTT Sodium Potassium Chloride Carbon Dioxide Anion Gap BUN Creatinine Estimated GFR POC Glucose Random Glucose Lactic Acid 2.7 H Calcium Prot Corrected Calcium Magnesium Total Bilirubin AST ALT Alkaline Phosphatase Ammonia Troponin I Total Protein Albumin Blood Type A Positive Blood Type Recheck Required Antibody Screen Negative 07/03/18 07/03/18 07/03/18 05:48 06:51 09:40 WBC RBC Hgb Hct MCV MCH MCHC RDW Plt Count MPV Neut % (Auto) Lymph % (Auto) Gilliam % (Auto) Eos % (Auto) Baso % (Auto) Neut # (Auto) Lymph # (Auto) Gilliam # (Auto) Eos # (Auto) Baso # (Auto) WBC Differential Differential Comment PT INR APTT Sodium Potassium Chloride Carbon Dioxide Anion Gap BUN Creatinine Estimated GFR POC Glucose 199 H Random Glucose Lactic Acid 2.4 H Calcium Prot Corrected Calcium Magnesium Total Bilirubin AST ALT Alkaline Phosphatase Ammonia Troponin I 0.65 H* D Total Protein Albumin Blood Type Blood Type Recheck Antibody Screen - Imaging Impressions Abdomen/Pelvis CT 07/03/18 02:52 CONCLUSION: 1. Findings consistent with moderate sigmoid diverticulitis. No perforation or abscess at this time. Consider colonoscopy following appropriate course of treatment given the long segment involvement to exclude possible malignancy. 2. Moderate gastric distention. 3. Moderate stool in the rectum. 4. 9 mm calcification in the posterior right bladder near the UVJ. No significant right-sided hydronephrosis. 5. 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 Generally, sub-2 cm visceral artery aneurysms are not treated. 6. Indeterminate density 3.3 cm cystic lesion in the posterior mid left kidney. Consider 6 month follow-up ultrasound exam. 7. L2 compression fracture of unknown chronicity given the lack of recent prior exams. Status post cement augmentation at L4. Chest X-Ray 07/03/18 02:55 CONCLUSION: 1. Patchy airspace disease in the left lower lobe concerning for pneumonia given history . <Nikia Pires - Last Filed: 07/03/18 13:50> - Labs CBC & Chem 7: 07/03/18 15:04 07/03/18 03:00 Labs: Laboratory Results - last 24 hr 07/03/18 07/03/18 07/03/18 03:00 03:00 03:00 WBC RBC Hgb Hct MCV MCH MCHC RDW Plt Count MPV Neut % (Auto) Lymph % (Auto) Gilliam % (Auto) Eos % (Auto) Baso % (Auto) Neut # (Auto) Lymph # (Auto) Gilliam # (Auto) Eos # (Auto) Baso # (Auto) WBC Differential Differential Comment PT 10.8 INR 1.1 APTT 21.2 L Sodium 147 H Potassium 3.7 Chloride 113 H Carbon Dioxide 25.4 Anion Gap 9 BUN 28 H Creatinine 0.92 Estimated GFR 60 L POC Glucose Random Glucose 100 Lactic Acid Calcium 7.4 L* Prot Corrected Calcium 8.2 L Magnesium 1.8 Total Bilirubin 0.2 AST 23 ALT 17 Alkaline Phosphatase 30 L Ammonia 14 Troponin I 0.48 H Total Protein 5.7 L Albumin 2.3 L Blood Type Blood Type Recheck Antibody Screen 07/03/18 07/03/18 07/03/18 03:00 03:00 03:00 WBC 21.6 H RBC 3.74 L Hgb 9.4 L Hct 30.0 L MCV 80.2 MCH 25.1 L MCHC 31.3 L RDW 16.9 Plt Count 223 MPV 8.6 Neut % (Auto) 91.6 H Lymph % (Auto) 3.4 L Gilliam % (Auto) 4.7 Eos % (Auto) 0.1 Baso % (Auto) 0.2 Neut # (Auto) 19.8 H Lymph # (Auto) 0.7 L Gilliam # (Auto) 1.0 H Eos # (Auto) 0.0 Baso # (Auto) 0.0 WBC Differential . Differential Comment Auto diff final PT INR APTT Sodium Potassium Chloride Carbon Dioxide Anion Gap BUN Creatinine Estimated GFR POC Glucose Random Glucose Lactic Acid 2.7 H Calcium Prot Corrected Calcium Magnesium Total Bilirubin AST ALT Alkaline Phosphatase Ammonia Troponin I Total Protein Albumin Blood Type A Positive Blood Type Recheck Required Antibody Screen Negative 07/03/18 07/03/18 07/03/18 05:48 06:51 09:40 WBC RBC Hgb Hct MCV MCH MCHC RDW Plt Count MPV Neut % (Auto) Lymph % (Auto) Gilliam % (Auto) Eos % (Auto) Baso % (Auto) Neut # (Auto) Lymph # (Auto) Gilliam # (Auto) Eos # (Auto) Baso # (Auto) WBC Differential Differential Comment PT INR APTT Sodium Potassium Chloride Carbon Dioxide Anion Gap BUN Creatinine Estimated GFR POC Glucose 199 H Random Glucose Lactic Acid 2.4 H Calcium Prot Corrected Calcium Magnesium Total Bilirubin AST ALT Alkaline Phosphatase Ammonia Troponin I 0.65 H* D Total Protein Albumin Blood Type Blood Type Recheck Antibody Screen 09/15/18 09/15/18 15:04 15:04 WBC RBC Hgb 7.7 L Hct 25.8 L MCV MCH MCHC RDW Plt Count MPV Neut % (Auto) Lymph % (Auto) Gilliam % (Auto) Eos % (Auto) Baso % (Auto) Neut # (Auto) Lymph # (Auto) Gilliam # (Auto) Eos # (Auto) Baso # (Auto) WBC Differential Differential Comment PT INR APTT Sodium Potassium Chloride Carbon Dioxide Anion Gap BUN Creatinine Estimated GFR POC Glucose Random Glucose Lactic Acid Calcium Prot Corrected Calcium Magnesium Total Bilirubin AST ALT Alkaline Phosphatase Ammonia Troponin I 0.54 H D Total Protein Albumin Blood Type Blood Type Recheck Antibody Screen - Imaging Impressions Abdomen/Pelvis CT 07/03/18 02:52 CONCLUSION: 1. Findings consistent with moderate sigmoid diverticulitis. No perforation or abscess at this time. Consider colonoscopy following appropriate course of treatment given the long segment involvement to exclude possible malignancy. 2. Moderate gastric distention. 3. Moderate stool in the rectum. 4. 9 mm calcification in the posterior right bladder near the UVJ. No significant right-sided hydronephrosis. 5. 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 Generally, sub-2 cm visceral artery aneurysms are not treated. 6. Indeterminate density 3.3 cm cystic lesion in the posterior mid left kidney. Consider 6 month follow-up ultrasound exam. 7. L2 compression fracture of unknown chronicity given the lack of recent prior exams. Status post cement augmentation at L4. Chest X-Ray 07/03/18 02:55 CONCLUSION: 1. Patchy airspace disease in the left lower lobe concerning for pneumonia given history . <Zo Rebolledo - Last Filed: 07/03/18 17:55> Assessment and Plan - Plan - Coffee ground emesis- was sent to the ER from SNF for episode of coffee- ground emesis, fever and hypoxia. Pt is alert and oriented, able to answer simple questions but unable to provide accurate history due to dementia. On admission Hemoglobin 9.4, previously on 05-05 was 9.2 . No bleeding reported since admission. Protonix/Octreotide gtt. - Acute diverticulitis- According to son, pt with known hx of this in the past but hasn't had an attack for few yrs Abdomen/Pelvis CT 07/03/18 1. Findings consistent with moderate sigmoid diverticulitis. No perforation or abscess at this time. Consider colonoscopy following appropriate course of treatment given the long segment involvement to exclude possible malignancy. 2. Moderate gastric distention. 3. Moderate stool in the rectum. 4. 9 mm calcification in the posterior right bladder near the UVJ. No significant right-sided hydronephrosis. 5. 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 Generally, sub-2 cm visceral artery aneurysms are not treated. 6. Indeterminate density 3.3 cm cystic lesion in the posterior mid left kidney. Consider 6 month follow-up ultrasound exam. 7. L2 compression fracture of unknown chronicity given the lack of recent prior exams. Status post cement augmentation at L4. - Pneumonia- CXR with patchy airspace disease left lower lobe concerning for pneumonia. - Sepsis/leukocytosis- febrile, Abx, likely secondary to above, blood cx pending - High troponin- possibly due to increase demand - Dementia - hx of COPD, HTN per attending Plan: - Clear liquid - EGD/colonoscopy once medically stable - No signs of active bleed - CEA - Monitor hh - Transfuse as needed - Notify GI for active bleed - cont Zosyn and Levaquin - Bowel regimen - IV fluids - Supportive care - Pt seen and examined by Dr. Rebolledo and myself and this note is written on her behalf. <Nikia Pires - Last Filed: 07/03/18 13:50> - Attending Attestation seen, examined agree with above <Zo Rebolledo - Last Filed: 07/03/18 17:55>
[2018-07-03 15:24] LABS: Hematocrit 25.8 % (35.0-46.0); Hemoglobin 7.7 gm/dL (11.6-15.3)
--- NOTE | 2018-07-03 16:17 | P.CONCC ---
History of Present Illness Service: Critical Care Medicine Consult date: 07/03/18 Requesting Physician: Olvin Schmitt Reason for Consult: hypotension Primary Care Provider: UNKNOWN History of Present Illness: This is a 72-year-old female with a history of dementia who presented with abdominal pain was found to have acute diverticulitis as well as a questionable GI bleed. She was admitted to the medical floor and started on Levaquin and Zosyn. Throughout the morning she developed worsening hypotension with lactic acidosis. She was given 2 L IV fluid bolus which initially did not respond to and she was emergently transferred to the ICU. I discussed the case with Dr. Schmitt the attending of record and I agreed to evaluate the patient. When I evaluated the patient, after additional IV fluid resuscitation, her lactate was downtrending. Her blood pressure was stable in the 120s-130 systolic. I discussed with her son and medical decision maker and he states that she is far improved from this morning. Her mental status appears better. She has no urinating. The patient complains of chronic low back pain as well as new left lower quadrant abdominal pain. She denies chest pain, shortness of breath, fever, chills, nausea, vomiting. She does have a slightly elevated troponin which is also downtrending at this point, most likely related to demand ischemia. She has no symptoms of acute coronary syndrome. Review of systems is otherwise negative. GI saw the patient and plans on endoscopic evaluation in the near future. PMHx: dementia, prior diverticulitis FH: noncontributory Social history: denies tob, etoh, doa. meds: reviewed. Review of Systems All other systems reviewed negative except as stated in HPI [facility] - History History Provided By: Patient, Medical Record - Social History I have reviewed the patient's Social History: Yes - Tobacco History Smoking Status: Former smoker Tobacco Type: Cigarettes - Alcohol History How Often Do You Have a Drink Containing Alcohol: Never - Substance Use History Substance History: No History of Abuse - Immunization History Tetanus Immunization: >5 Years Hx Influenza Vaccine This Season: No Medications and Allergies Active Medications: Active Medications Acetaminophen (Tylenol) 650 mg PO Q4H PRN PRN Reason: Temp > 100.4 Al Hydroxide/Mg Hydroxide (Milk Of Magnesia Liq) 30 ml PO Q12H PRN PRN Reason: Mild Constipation Albuterol (Duoneb Neb (Prn)) 1 ampul NEB Q4HR NEB PRN PRN Reason: SOB/WHEEZING Bisacodyl (Dulcolax Supp) 10 mg RECTAL DAILY PRN PRN Reason: SEVERE CONSITIPATION Octreotide Acetate 500 mcg/ (Sodium Chloride) 500.5 mls @ 50.05 mls/hr IV.CONT .Q10H [facility]A Last Admin: 07/03/18 04:17 Dose: 50 mcg/hr, 50.05 mls/hr Sodium Chloride (Ns Inj) 500 mls @ 0 mls/hr IV.SIG BOLUS EVA Last Infusion: 07/03/18 05:17 Dose: Infused Sodium Chloride (Ns Inj) 1,000 mls @ 100 mls/hr IV.CONT .Q10H EVA Last Admin: 07/03/18 07:28 Dose: 100 mls/hr Piperacillin/Tazobactam/Dextrose (Zosyn 4.5 Gm Premix) 4.5 gm in 100 mls @ 200 mls/hr IV.SIG Q6H EVA Last Infusion: 07/03/18 12:34 Dose: Infused Levofloxacin/Dextrose (Levaquin 750 Mg Premix Inj) 150 mls @ 100 mls/hr IV.SIG Q24H EVA Last Infusion: 07/03/18 16:06 Dose: Infused Vancomycin HCl 750 mg/ Sodium (Chloride) 257.5 mls @ 250 mls/hr IV.SIG Q24H [facility]A Lactulose (Lactulose Liq) 30 ml PO DAILY PRN PRN Reason: SEVERE CONSITIPATION Miscellaneous Information ([facility] Ordered Lab Info) 0 each OTHER ONCE ONE Stop: 07/06/18 05:46 Ondansetron HCl (Zofran Inj) 4 mg IV.PUSH Q6H PRN PRN Reason: NAUSEA OR VOMITING Pharmacy Profile Note (Vancomycin Consult Pharmacy) 1 each OTHER UNSCH PRN PRN Reason: Pharmacy to dose Senna/Docusate Sodium (Jordyn-Colace) 1 tab PO BID [facility] Last Admin: 07/03/18 08:56 Dose: Not Given Sennosides (Senokot) 17.2 mg PO Q12H PRN PRN Reason: Moderate Constipation Sodium Chloride (Ns Flush) 2 ml IV.FLUSH PRN PRN PRN Reason: FLUSH AFTER USING IV ACCESS Allergies Allergy/AdvReac Type Severity Reaction Status Date / Time adhesive Allergy Severe Unverified 06/02/17 15:29 PAPER TAPE/RAW SKIN Allergy Mild Uncoded 10/18/03 07:54 Home Medications Medication Instructions Recorded Confirmed Type calcium carb and citrate-vitD3 07/03/18 History nuonykmh-[id number]-jny citrate 07/03/18 History [Nauzene] dicyclomine 20 mg PO QID 07/03/18 07/03/18 History donepezil 10 mg PO DAILY 07/03/18 07/03/18 History escitalopram oxalate 10 mg PO DAILY 07/03/18 07/03/18 History morphine 30 mg PO Q8HR PRN 07/03/18 07/03/18 History omeprazole magnesium 20.6 mg PO 07/03/18 History potassium chloride 20 meq PO DAILY 07/03/18 07/03/18 History prednisone 5 mg PO DAILY 07/03/18 07/03/18 History temazepam [Restoril] 07/03/18 History trazodone 100 mg PO DAILY 07/03/18 07/03/18 History trazodone 200 mg PO DAILY 07/03/18 07/03/18 History Physical Exam Vital signs: Vital Signs 07/03/18 02:30 07/03/18 02:38 07/03/18 04:19 Temperature Pulse Rate 105 H 106 H Respiratory Rate 27 H 26 H Blood Pressure 136/68 136/68 Pulse Oximetry 100 92 L 07/03/18 05:05 07/03/18 06:45 07/03/18 07:00 Temperature 36.9 C Pulse Rate 105 H 88 87 Respiratory Rate 20 22 Blood Pressure 118/57 L 119/69 Pulse Oximetry 91 L 91 L 07/03/18 07:50 07/03/18 08:00 07/03/18 08:04 Temperature 37.4 C Pulse Rate 80 Respiratory Rate 18 Blood Pressure 86/53 L 89/53 L 88/48 L Pulse Oximetry 93 L 07/03/18 08:19 07/03/18 08:30 07/03/18 08:54 Temperature Pulse Rate 79 Respiratory Rate 20 Blood Pressure 98/54 L 90/53 L 95/57 L Pulse Oximetry 94 L 07/03/18 09:00 07/03/18 09:36 07/03/18 09:37 Temperature Pulse Rate 87 Respiratory Rate Blood Pressure 70/49 L 79/45 L Pulse Oximetry 07/03/18 09:42 07/03/18 09:50 07/03/18 10:00 Temperature 37.4 C Pulse Rate 75 Respiratory Rate Blood Pressure 75/52 L 104/62 Pulse Oximetry 07/03/18 11:00 07/03/18 12:00 07/03/18 13:00 Temperature Pulse Rate 84 81 73 Respiratory Rate Blood Pressure Pulse Oximetry 07/03/18 14:00 07/03/18 15:00 Temperature Pulse Rate 73 66 Respiratory Rate Blood Pressure Pulse Oximetry Intake & Output 07/02/18 07/03/18 07/03/18 18:59 06:59 18:59 Intake Total 650 / 650 1500 / 1500 Balance 650 / 650 1500 / 1500 Weight 45.569 kg Intake: IV 650 / 650 1500 / 1500 Levaquin 750 mg Premix Inj 150 150 / 150 ML @ 100 mls/hr IV.SIG Q24H [facility] Rx#:[id number] Protonix Inj 80 MG In NS Inj 50 50 / 50 ML @ 600 mls/hr IV.SIG BOLUS ONE Rx#:[id number] Zosyn 4.5 GM Premix 4.5 gm In 100 / 100 100 / 100 100 ml @ 200 mls/hr IV.SIG Q6H [facility] Rx#:[id number] NS Inj 1,000 ML @ 999 mls/hr IV 1000 / 1000 .SIG .Q1H1M EVA Rx#:[id number] NS Inj 500 ML @ Wide Open IV. 500 / 500 SIG BOLUS EVA Rx#:[id number] Vancomycin Inj 1,000 MG In NS 250 / 250 Inj 250 ML @ 200 mls/hr IV.SIG ONCE ONE Rx#:[id number] Other: Date of Last Bowel Movement 07/03/18 07/03/18 Narrative: GENERAL: Frail elderly female, lying in bed, no acute distress HEENT: Normocephalic. Atraumatic. Pupils equal, round, reactive, conjugate. Mucous membranes are moist NECK: Trachea is midline. There is no JVD. CHEST: Equal chest rise. Nasal cannula oxygen. CARDIOVASCULAR: Normal rate, regular rhythm. Sinus. Blood pressure is significantly improved from initial evaluations. ABDOMEN: Soft, minimally tender to deep palpation in the left lower quadrant, nondistended. No guarding. No rebound. No peritoneal signs. MUSCULOSKELETAL: Pulses 2+. No peripheral edema. NEUROLOGICAL: RASS 0. CAM -. Follows commands. No focal deficits. Septic Shock Reassessment Septic shock perfusion: reassessment completed Assessment and Plan - Assessment and Plan Plan: Assessment: 9-year-old female with acute severe diverticulitis and severe sepsis with endorgan dysfunction, which appears to be resolving at this point. Agree with admission to the ICU for close monitoring overnight. She continues to improve, and if she does so we can consider transitioning out of ICU in the morning. Continue IV fluid resuscitation and antibiotics. I agree with endoscopic evaluation in the near future. Active problems: Severe sepsis with endorgan dysfunction Acute kidney injury Hypertension which is still fluid responsive and now resolved Acute diverticulitis Dementia Lactic acidosis- resolving Recommendations: Admit to ICU for close observation overnight Continue IV fluid resuscitation Closure and output monitoring Daily BMP, CBC Continue IV antibiotics Appreciate GI consultation Avoid long-acting sedatives and benzodiazepines in the setting of dementia Patient has chronic opiate dependence at home, and will likely go into withdrawals without her opiates, however we will minimize these in the setting of acute illnesses it may worsen her dementia, delirium, or respiratory status.
[2018-07-04] MEDS: Sod Chloride 0.9% Inj 1,000 ML IV.CONT SCH (01:32)
[2018-07-04] MEDS: Piperacil/Tazo 4.5 GM Premix 4.5 GM/100 ML BAG IV.SIG SCH ×2 (03:59→09:59)
[2018-07-04] MEDS: Octreotide Inj 500 MCG in Sodium Chlor 0.9% Inj 500 ML IV.CONT SCH (04:00)
[2018-07-04 06:00] LABS: Baso # (Auto) 0.1 th/mm3 (0.0-0.2); Baso % (Auto) 0.5 % (0.0-2.0); Eos # (Auto) 0.1 th/mm3 (0.0-0.4); Eos % (Auto) 0.6 % (0.0-4.0); Hematocrit 26.5 % (35.0-46.0); Hemoglobin 8.1 gm/dL (11.6-15.3); Lymph # (Auto) 1.3 th/mm3 (1.0-4.8); Lymph % (Auto) 9.6 % (9.0-44.0); Mean Corpuscular Hemoglobin 25.1 pg (27.0-34.0); Mean Corpuscular Volume 82.2 fL (80.0-100.0); Mean Platelet Volume 8.5 fL (7.0-11.0); Mono # (Auto) 0.9 th/mm3 (0.0-0.9); Mono % (Auto) 7.1 % (0.0-8.0); Neut % (Auto) 82.2 % (16.0-70.0); Platelet Count 177 th/mm3 (150-450); Red Blood Count 3.23 mil/mm3 (4.00-5.30); Red Cell Distribution Width 17.3 % (11.6-17.2); White Blood Count 13.4 th/mm3 (4.0-11.0)
[2018-07-04] MEDS ORDERED: Vancomycin Inj 750 MG in Sodium Chlor 0.9% Inj 250 ML IV.SIG SCH (06:00)
[2018-07-04 06:21] LABS: Mean Corpuscular HGB Conc 30.5 % (32.0-36.0)
[2018-07-04 06:29] LABS: Albumin 1.9 g/dL (3.4-5.0); Calcium 7.4 mg/dL (8.5-10.1); Carbon Dioxide 19.4 meq/L (21.0-32.0); Carcinoembryonic Antigen 13.2 ng/mL (0.2-5.0); Potassium 4.1 meq/L (3.5-5.1); Total Protein 5.4 g/dL (6.4-8.2)
[2018-07-04] MEDS: Senna/Docusate Sodium 8.6/50 MG Tablet PO SCH ×2 (12:52→21:24)
--- NOTE | 2018-07-04 13:00 | P.PN ---
Subjective Interval history: Follow-up for severe sepsis, pneumonia, diverticulitis. Patient is currently doing well. She is much more alert and conversational. No fever or chills. Blood pressure is improved. Physical Exam Vital signs: Vital Signs 07/03/18 13:00 07/03/18 14:00 07/03/18 15:00 Temperature Pulse Rate 73 73 66 Respiratory Rate Blood Pressure Pulse Oximetry 07/03/18 16:00 07/03/18 17:00 07/03/18 18:00 Temperature 97.7 F Pulse Rate 66 71 71 Respiratory Rate 23 Blood Pressure 83/50 L Pulse Oximetry 100 07/03/18 19:00 07/03/18 20:00 07/03/18 21:00 Temperature 97.9 F Pulse Rate 72 69 72 Respiratory Rate 22 Blood Pressure 136/69 Pulse Oximetry 99 07/03/18 21:28 07/03/18 22:00 07/04/18 00:00 Temperature 99.1 F Pulse Rate 76 83 Respiratory Rate 22 Blood Pressure 163/75 H Pulse Oximetry 100 99 07/04/18 01:00 07/04/18 02:00 07/04/18 03:00 Temperature Pulse Rate 76 77 83 Respiratory Rate Blood Pressure Pulse Oximetry 07/04/18 04:00 07/04/18 05:00 07/04/18 06:00 Temperature 99.2 F Pulse Rate 72 72 73 Respiratory Rate 22 Blood Pressure 158/81 H Pulse Oximetry 97 07/04/18 08:00 07/04/18 09:55 Temperature Pulse Rate 73 Respiratory Rate Blood Pressure Pulse Oximetry 99 Intake & Output 07/03/18 07/04/18 07/04/18 18:59 06:59 18:59 Intake Total 3100.5 / 3100.5 1700.5 / 1700.5 150 / 150 Output Total 700 / 700 Balance 3100.5 / 3100.5 1000.5 / 1000.5 150 / 150 Weight 54 kg Intake: IV 3100.5 / 3100.5 1700.5 / 1700.5 150 / 150 SandoSTATIN Inj 500 MCG In NS 500.5 / 500.5 500.5 / 500.5 Inj 500 ML @ 50 MCG/HR 50.05 mls/hr IV.CONT .Q10H [facility] Rx#: [id number] NS Inj 1,000 ML @ 100 mls/hr IV 1000 / 1000 1000 / 1000 .CONT .Q10H [facility]A Rx#:[id number] Levaquin 750 mg Premix Inj 150 150 / 150 150 / 150 ML @ 100 mls/hr IV.SIG Q24H [facility]A Rx#:[id number] Zosyn 4.5 GM Premix 4.5 gm In 200 / 200 200 / 200 100 ml @ 200 mls/hr IV.SIG Q6H EVA Rx#:[id number] NS Inj 1,000 ML @ 999 mls/hr IV 1000 / 1000 .SIG .Q1H1M EVA Rx#:[id number] Vancomycin Inj 1,000 MG In NS 250 / 250 Inj 250 ML @ 200 mls/hr IV.SIG ONCE ONE Rx#:[id number] Output: Urine 700 / 700 Other: Date of Last Bowel Movement 07/03/18 07/04/18 07/04/18 # Bowel Movements 1 Narrative: GENERAL: Frail elderly female, lying in bed, no acute distress HEENT: Normocephalic. Atraumatic. Pupils equal, round, reactive, conjugate. Mucous membranes are moist NECK: Trachea is midline. There is no JVD. CHEST: Equal chest rise. Nasal cannula oxygen. CARDIOVASCULAR: Normal rate, regular rhythm. ABDOMEN: Soft, minimally tender to deep palpation in the left lower quadrant, better than yesterday , nondistended. MUSCULOSKELETAL: no edema. NEUROLOGICAL: Alert Results - Labs CBC & Chem 7: 07/04/18 04:46 07/04/18 04:46 Laboratory Results - last 24 hr 07/03/18 07/03/18 07/04/18 15:04 15:04 04:46 WBC 13.4 H RBC 3.23 L Hgb 7.7 L 8.1 L Hct 25.8 L 26.5 L MCV 82.2 MCH 25.1 L MCHC 30.5 L RDW 17.3 H Plt Count 177 MPV 8.5 Neut % (Auto) 82.2 H Lymph % (Auto) 9.6 Baldwin % (Auto) 7.1 Eos % (Auto) 0.6 Baso % (Auto) 0.5 Neut # (Auto) 11.0 H Lymph # (Auto) 1.3 Baldwin # (Auto) 0.9 Eos # (Auto) 0.1 Baso # (Auto) 0.1 WBC Differential . Differential Comment Auto diff final Sodium Potassium Chloride Carbon Dioxide Anion Gap BUN Creatinine Estimated GFR Random Glucose Calcium Prot Corrected Calcium Total Bilirubin AST ALT Alkaline Phosphatase Troponin I 0.54 H D Total Protein Albumin Carcinoembryonic Ag 07/04/18 04:46 WBC RBC Hgb Hct MCV MCH MCHC RDW Plt Count MPV Neut % (Auto) Lymph % (Auto) Baldwin % (Auto) Eos % (Auto) Baso % (Auto) Neut # (Auto) Lymph # (Auto) Baldwin # (Auto) Eos # (Auto) Baso # (Auto) WBC Differential Differential Comment Sodium 148 H Potassium 4.1 Chloride 117 H Carbon Dioxide 19.4 L Anion Gap 12 BUN 23 H Creatinine 0.87 Estimated GFR 64 L Random Glucose 124 H Calcium 7.4 L* Prot Corrected Calcium 8.3 L Total Bilirubin 0.3 AST 28 ALT 33 Alkaline Phosphatase 25 L Troponin I Total Protein 5.4 L Albumin 1.9 L Carcinoembryonic Ag 13.2 H Microbiology 07/03/18 03:00 Blood - Peripheral Aerobic Blood Culture - Preliminary No growth in 1 day 07/03/18 03:00 Blood - Peripheral Anaerobic Blood Culture - Preliminary No growth in 1 day 07/03/18 02:55 Blood - Peripheral Aerobic Blood Culture - Preliminary No growth in 1 day 07/03/18 02:55 Blood - Peripheral Anaerobic Blood Culture - Preliminary No growth in 1 day Assessment and Plan - Assessment (1) Sepsis Code(s): A41.9 - Sepsis, unspecified organism Status: Acute (2) PNA (pneumonia) Code(s): J18.9 - Pneumonia, unspecified organism Status: Acute (3) GI bleed Code(s): K92.2 - Gastrointestinal hemorrhage, unspecified Status: Acute (4) COPD (chronic obstructive pulmonary disease) Code(s): J44.9 - Chronic obstructive pulmonary disease, unspecified Status: Acute (5) Elevated troponin Code(s): R74.8 - Abnormal levels of other serum enzymes Status: Acute - Plan This is a 72-year-old female with a history of dementia who presented with abdominal pain was found to have acute diverticulitis as well as a questionable GI bleed. She was admitted to the medical floor and started on Levaquin and Zosyn. Throughout the morning she developed worsening hypotension with lactic acidosis. She was given 2 L IV fluid bolus which initially did not respond to and she was emergently transferred to the ICU. Once patient was transferred to ICU, she did not require any pressors, her hemodynamic status improved. She was observed in the ICU overnight (07/03/2018) and subsequently care was transferred back to hospitalist service. Severe sepsis (HR 105, Resp 27, Lactic acid 2.7, Pneumonia, Diverticulitis). Acute diverticulitis Community acquired pneumonia - Patient is currently on Nasal cannula. Wean down O2 to keep O2 sat > 90% - Will d/c Zosyn and Vancomycin. - Continue Levaquin 750mg IV Qday and Flagyl 500mg PO TID. - Levaquin will cover CAP and Levaquin/Flagyl combo will cover Diverticulitis - Okay to transfer to the floor. Full liquid diet. Mild hypernatremia - Will start patient on D5W 75cc/hour. - Repeat BMP, CBC in the AM. Upper GI bleed - Continue Octreotide drip. - Protonix 40mg IV Q12hrs. - GI is following. When medically stable, patient will likely need EGD. - Patient is already on Levaquin. Full code. SCDs.
--- NOTE | 2018-07-04 14:25 | P.PNGI ---
Subjective Interval history: Pt is resting in bed, pain is better today, no bleeding reported per nurse. No nausea or vomiting <Nikia Pires - Last Filed: 07/04/18 14:25> Physical Exam Vital signs: Vital Signs 07/03/18 15:00 07/03/18 16:00 07/03/18 17:00 Temperature 97.7 F Pulse Rate 66 66 71 Respiratory Rate 23 Blood Pressure 83/50 L Pulse Oximetry 100 07/03/18 18:00 07/03/18 19:00 07/03/18 20:00 Temperature 97.9 F Pulse Rate 71 72 69 Respiratory Rate 22 Blood Pressure 136/69 Pulse Oximetry 99 07/03/18 21:00 07/03/18 21:28 07/03/18 22:00 Temperature Pulse Rate 72 76 Respiratory Rate Blood Pressure Pulse Oximetry 100 07/04/18 00:00 07/04/18 01:00 07/04/18 02:00 Temperature 99.1 F Pulse Rate 83 76 77 Respiratory Rate 22 Blood Pressure 163/75 H Pulse Oximetry 99 07/04/18 03:00 07/04/18 04:00 07/04/18 05:00 Temperature 99.2 F Pulse Rate 83 72 72 Respiratory Rate 22 Blood Pressure 158/81 H Pulse Oximetry 97 07/04/18 06:00 07/04/18 08:00 07/04/18 09:00 Temperature Pulse Rate 73 73 75 Respiratory Rate Blood Pressure Pulse Oximetry 07/04/18 09:55 07/04/18 10:00 07/04/18 12:00 Temperature Pulse Rate 74 71 Respiratory Rate Blood Pressure Pulse Oximetry 99 07/04/18 13:00 Temperature Pulse Rate 73 Respiratory Rate Blood Pressure Pulse Oximetry Intake & Output 07/03/18 07/04/18 07/04/18 18:59 06:59 18:59 Intake Total 3100.5 / 3100.5 1700.5 / 1700.5 150 / 150 Output Total 700 / 700 Balance 3100.5 / 3100.5 1000.5 / 1000.5 150 / 150 Weight 54 kg Intake: IV 3100.5 / 3100.5 1700.5 / 1700.5 150 / 150 SandoSTATIN Inj 500 MCG In NS 500.5 / 500.5 500.5 / 500.5 Inj 500 ML @ 50 MCG/HR 50.05 mls/hr IV.CONT .Q10H EVA Rx#: [id number] NS Inj 1,000 ML @ 100 mls/hr IV 1000 / 1000 1000 / 1000 .CONT .Q10H EVA Rx#:[id number] Levaquin 750 mg Premix Inj 150 150 / 150 150 / 150 ML @ 100 mls/hr IV.SIG Q24H EVA Rx#:[id number] Zosyn 4.5 GM Premix 4.5 gm In 200 / 200 200 / 200 100 ml @ 200 mls/hr IV.SIG Q6H EVA Rx#:[id number] NS Inj 1,000 ML @ 999 mls/hr IV 1000 / 1000 .SIG .Q1H1M EVA Rx#:[id number] Vancomycin Inj 1,000 MG In NS 250 / 250 Inj 250 ML @ 200 mls/hr IV.SIG ONCE ONE Rx#:[id number] Output: Urine 700 / 700 Other: Date of Last Bowel Movement 07/03/18 07/04/18 07/04/18 # Bowel Movements 1 Narrative: GENERAL: Frail elderly female, lying in bed, no acute distress HEENT: Normocephalic. Atraumatic. Pupils equal, round, reactive, conjugate. Mucous membranes are moist NECK: Trachea is midline. There is no JVD. CHEST: Equal chest rise. Nasal cannula oxygen. CARDIOVASCULAR: Normal rate, regular rhythm. ABDOMEN: Soft, minimally tender to deep palpation in the left lower quadrant, better than yesterday , nondistended. MUSCULOSKELETAL: no edema. NEUROLOGICAL: Alert <LexisGerabharti - Last Filed: 07/04/18 14:25> Vital signs: Vital Signs 07/03/18 18:00 07/03/18 19:00 07/03/18 20:00 Temperature 97.9 F Pulse Rate 71 72 69 Respiratory Rate 22 Blood Pressure 136/69 Pulse Oximetry 99 07/03/18 21:00 07/03/18 21:28 07/03/18 22:00 Temperature Pulse Rate 72 76 Respiratory Rate Blood Pressure Pulse Oximetry 100 07/04/18 00:00 07/04/18 01:00 07/04/18 02:00 Temperature 99.1 F Pulse Rate 83 76 77 Respiratory Rate 22 Blood Pressure 163/75 H Pulse Oximetry 99 07/04/18 03:00 07/04/18 04:00 07/04/18 05:00 Temperature 99.2 F Pulse Rate 83 72 72 Respiratory Rate 22 Blood Pressure 158/81 H Pulse Oximetry 97 07/04/18 06:00 07/04/18 08:00 07/04/18 09:00 Temperature Pulse Rate 73 73 75 Respiratory Rate Blood Pressure Pulse Oximetry 07/04/18 09:55 07/04/18 10:00 07/04/18 12:00 Temperature Pulse Rate 74 71 Respiratory Rate Blood Pressure Pulse Oximetry 99 07/04/18 13:00 07/04/18 14:00 07/04/18 15:00 Temperature Pulse Rate 73 67 68 Respiratory Rate Blood Pressure Pulse Oximetry Intake & Output 07/03/18 07/04/18 07/04/18 18:59 06:59 18:59 Intake Total 3100.5 / 3100.5 1700.5 / 1700.5 150 / 150 Output Total 700 / 700 Balance 3100.5 / 3100.5 1000.5 / 1000.5 150 / 150 Weight 54 kg Intake: IV 3100.5 / 3100.5 1700.5 / 1700.5 150 / 150 SandoSTATIN Inj 500 MCG In NS 500.5 / 500.5 500.5 / 500.5 Inj 500 ML @ 50 MCG/HR 50.05 mls/hr IV.CONT .Q10H EVA Rx#: [id number] NS Inj 1,000 ML @ 100 mls/hr IV 1000 / 1000 1000 / 1000 .CONT .Q10H EVA Rx#:[id number] Levaquin 750 mg Premix Inj 150 150 / 150 150 / 150 ML @ 100 mls/hr IV.SIG Q24H EVA Rx#:[id number] Zosyn 4.5 GM Premix 4.5 gm In 200 / 200 200 / 200 100 ml @ 200 mls/hr IV.SIG Q6H EVA Rx#:[id number] NS Inj 1,000 ML @ 999 mls/hr IV 1000 / 1000 .SIG .Q1H1M EVA Rx#:[id number] Vancomycin Inj 1,000 MG In NS 250 / 250 Inj 250 ML @ 200 mls/hr IV.SIG ONCE ONE Rx#:[id number] Output: Urine 700 / 700 Other: Date of Last Bowel Movement 07/03/18 07/04/18 07/04/18 # Bowel Movements 1 <Bratu,Zo - Last Filed: 07/04/18 17:31> Results - Labs CBC & Chem 7: 07/04/18 04:46 07/04/18 04:46 Laboratory Results - last 24 hr 07/03/18 07/03/18 07/04/18 15:04 15:04 04:46 WBC 13.4 H RBC 3.23 L Hgb 7.7 L 8.1 L Hct 25.8 L 26.5 L MCV 82.2 MCH 25.1 L MCHC 30.5 L RDW 17.3 H Plt Count 177 MPV 8.5 Neut % (Auto) 82.2 H Lymph % (Auto) 9.6 [place] % (Auto) 7.1 Eos % (Auto) 0.6 Baso % (Auto) 0.5 Neut # (Auto) 11.0 H Lymph # (Auto) 1.3 [place] # (Auto) 0.9 Eos # (Auto) 0.1 Baso # (Auto) 0.1 WBC Differential . Differential Comment Auto diff final Sodium Potassium Chloride Carbon Dioxide Anion Gap BUN Creatinine Estimated GFR Random Glucose Calcium Prot Corrected Calcium Total Bilirubin AST ALT Alkaline Phosphatase Troponin I 0.54 H D Total Protein Albumin Carcinoembryonic Ag 07/04/18 04:46 WBC RBC Hgb Hct MCV MCH MCHC RDW Plt Count MPV Neut % (Auto) Lymph % (Auto) [place] % (Auto) Eos % (Auto) Baso % (Auto) Neut # (Auto) Lymph # (Auto) [place] # (Auto) Eos # (Auto) Baso # (Auto) WBC Differential Differential Comment Sodium 148 H Potassium 4.1 Chloride 117 H Carbon Dioxide 19.4 L Anion Gap 12 BUN 23 H Creatinine 0.87 Estimated GFR 64 L Random Glucose 124 H Calcium 7.4 L* Prot Corrected Calcium 8.3 L Total Bilirubin 0.3 AST 28 ALT 33 Alkaline Phosphatase 25 L Troponin I Total Protein 5.4 L Albumin 1.9 L Carcinoembryonic Ag 13.2 H Microbiology 07/03/18 03:00 Blood - Peripheral Aerobic Blood Culture - Preliminary No growth in 1 day 07/03/18 03:00 Blood - Peripheral Anaerobic Blood Culture - Preliminary No growth in 1 day 07/03/18 02:55 Blood - Peripheral Aerobic Blood Culture - Preliminary No growth in 1 day 07/03/18 02:55 Blood - Peripheral Anaerobic Blood Culture - Preliminary No growth in 1 day <Niika Pires - Last Filed: 07/04/18 14:25> - Labs CBC & Chem 7: 07/04/18 04:46 07/04/18 04:46 Laboratory Results - last 24 hr 07/04/18 07/04/18 04:46 04:46 WBC 13.4 H RBC 3.23 L Hgb 8.1 L Hct 26.5 L MCV 82.2 MCH 25.1 L MCHC 30.5 L RDW 17.3 H Plt Count 177 MPV 8.5 Neut % (Auto) 82.2 H Lymph % (Auto) 9.6 [place] % (Auto) 7.1 Eos % (Auto) 0.6 Baso % (Auto) 0.5 Neut # (Auto) 11.0 H Lymph # (Auto) 1.3 [place] # (Auto) 0.9 Eos # (Auto) 0.1 Baso # (Auto) 0.1 WBC Differential . Differential Comment Auto diff final Sodium 148 H Potassium 4.1 Chloride 117 H Carbon Dioxide 19.4 L Anion Gap 12 BUN 23 H Creatinine 0.87 Estimated GFR 64 L Random Glucose 124 H Calcium 7.4 L* Prot Corrected Calcium 8.3 L Total Bilirubin 0.3 AST 28 ALT 33 Alkaline Phosphatase 25 L Total Protein 5.4 L Albumin 1.9 L Carcinoembryonic Ag 13.2 H Microbiology 07/03/18 03:00 Blood - Peripheral Aerobic Blood Culture - Preliminary No growth in 1 day 07/03/18 03:00 Blood - Peripheral Anaerobic Blood Culture - Preliminary No growth in 1 day 07/03/18 02:55 Blood - Peripheral Aerobic Blood Culture - Preliminary No growth in 1 day 07/03/18 02:55 Blood - Peripheral Anaerobic Blood Culture - Preliminary No growth in 1 day <PennykiannaZo [place] - Last Filed: 07/04/18 17:31> Assessment and Plan - Plan - Coffee ground emesis- was sent to the ER from [facility] for episode of coffee- ground emesis, fever and hypoxia. On admission Hemoglobin 9.4, previously on 05-05 was 9.2 . No bleeding reported since admission. hgb today is 8.1. Protonix/Octreotide gtt. - Acute diverticulitis- According to son, pt with known hx of this in the past but hasn't had an attack for few yrs Abdomen/Pelvis CT 07/03/18 1. Findings consistent with moderate sigmoid diverticulitis. No perforation or abscess at this time. Consider colonoscopy following appropriate course of treatment given the long segment involvement to exclude possible malignancy. 2. Moderate gastric distention. 3. Moderate stool in the rectum. 4. 9 mm calcification in the posterior right bladder near the UVJ. No significant right-sided hydronephrosis. 5. 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 Generally, sub-2 cm visceral artery aneurysms are not treated. 6. Indeterminate density 3.3 cm cystic lesion in the posterior mid left kidney. Consider 6 month follow-up ultrasound exam. 7. L2 compression fracture of unknown chronicity given the lack of recent prior exams. Status post cement augmentation at L4. - Pneumonia- CXR with patchy airspace disease left lower lobe concerning for pneumonia. - Sepsis/leukocytosis- Improving , Abx, likely secondary to above, blood cx No growth so far - High troponin- possibly due to increase demand - Dementia - hx of COPD, HTN per attending Plan: - Full liquids - EGD/colonoscopy once medically stable - No signs of active bleed - CEA 13.2 - Monitor hh - Transfuse as needed - Notify GI for active bleed - cont Zosyn and Levaquin - Bowel regimen - IV fluids - Supportive care - Pt seen and examined by Dr. Rebolledo and myself and this note is written on her behalf. <Nikia Pires - Last Filed: 07/04/18 14:25> - Attending Attestation seen, examined agree with above <Zo Rebolledo - Last Filed: 07/04/18 17:31>
[2018-07-04] MEDS ORDERED: Octreotide Inj 500 MCG in Sodium Chlor 0.9% Inj 500 ML IV.CONT SCH (18:00)
[2018-07-04] MEDS: Dextrose 5% in Water Inj 1,000 ML IV.CONT SCH (20:07)
[2018-07-04] MEDS: Pantoprazole Inj 40 MG Vial IV.PUSH SCH (21:23)
[2018-07-04] MEDS: metroNIDAZOLE 500 MG Tablet PO SCH (21:24)
[2018-07-04] MEDS: Captopril 12.5 MG Tablet PO PRN (21:24)
[2018-07-05] MEDS ORDERED: Chlorhexidine Gluconate 2% 1 Pack (2 Cloths) TOPICAL PRN (04:00)
[2018-07-05] MEDS: Chlorhexidine Gluconate 2% 1 Pack (2 Cloths) TOPICAL SCH (05:37)
[2018-07-05] MEDS: metroNIDAZOLE 500 MG Tablet PO SCH ×3 (05:50→21:13)
[2018-07-05] MEDS: Pantoprazole Inj 40 MG Vial IV.PUSH SCH (08:45)
[2018-07-05] MEDS: Dextrose 5% in Water Inj 1,000 ML IV.CONT SCH ×2 (08:46→20:39)
[2018-07-05] MEDS: Senna/Docusate Sodium 8.6/50 MG Tablet PO SCH ×2 (08:46→20:40)
[2018-07-05] MEDS: Captopril 12.5 MG Tablet PO PRN ×2 (10:08→18:14)
--- NOTE | 2018-07-05 10:14 | P.PNGI ---
Subjective Interval history: Pt is resting in bed, having regular bm, no bleeding reported. No nausea, no vomiting, she is having LLQ pain on palpation <Nikia Pires - Last Filed: 07/05/18 10:08> Physical Exam Vital signs: Vital Signs 07/04/18 12:00 07/04/18 13:00 07/04/18 13:15 Temperature Pulse Rate 71 73 71 Respiratory Rate 16 19 Blood Pressure 151/78 H 150/77 H Pulse Oximetry 07/04/18 13:30 07/04/18 13:45 07/04/18 14:00 Temperature Pulse Rate 69 66 67 Respiratory Rate 21 19 22 Blood Pressure 161/83 H 170/80 H 159/74 H Pulse Oximetry 07/04/18 14:15 07/04/18 14:30 07/04/18 14:45 Temperature Pulse Rate 70 69 69 Respiratory Rate 16 24 22 Blood Pressure 156/74 H 168/79 H 166/79 H Pulse Oximetry 99 99 100 07/04/18 15:00 07/04/18 15:15 07/04/18 15:30 Temperature Pulse Rate 68 71 70 Respiratory Rate 22 24 16 Blood Pressure 170/79 H 162/82 H 165/78 H Pulse Oximetry 98 97 98 07/04/18 15:45 07/04/18 16:00 07/04/18 16:15 Temperature 97.9 F Pulse Rate 71 69 72 Respiratory Rate 14 16 15 Blood Pressure 166/80 H 159/80 H 135/70 Pulse Oximetry 98 98 96 07/04/18 16:30 07/04/18 16:35 07/04/18 16:45 Temperature Pulse Rate 71 67 74 Respiratory Rate 16 17 17 Blood Pressure 174/87 H 173/85 H 175/86 H Pulse Oximetry 100 100 99 07/04/18 17:00 07/04/18 17:15 07/04/18 17:22 Temperature Pulse Rate 66 68 65 Respiratory Rate 17 14 17 Blood Pressure 173/83 H 173/83 H 167/79 H Pulse Oximetry 99 99 100 07/04/18 17:30 07/04/18 18:00 07/04/18 18:48 Temperature Pulse Rate 67 66 77 Respiratory Rate 17 17 22 Blood Pressure 159/74 H 167/79 H 124/64 Pulse Oximetry 100 100 93 L 07/04/18 19:00 07/04/18 19:30 07/04/18 20:00 Temperature 99.5 F Pulse Rate 77 75 72 Respiratory Rate 20 19 25 H Blood Pressure 136/63 164/76 H 151/71 H Pulse Oximetry 99 93 L 99 07/04/18 20:31 07/04/18 20:38 07/04/18 21:00 Temperature Pulse Rate 63 75 Respiratory Rate 29 H 34 H Blood Pressure 165/71 H 165/80 H Pulse Oximetry 97 99 100 07/04/18 21:30 07/04/18 22:00 07/04/18 22:30 Temperature Pulse Rate 68 62 62 Respiratory Rate 26 H 53 H 44 H Blood Pressure 172/79 H 163/77 H 176/75 H Pulse Oximetry 99 99 94 L 07/04/18 23:00 07/04/18 23:30 07/05/18 00:00 Temperature 99.5 F Pulse Rate 65 69 65 Respiratory Rate 26 H 24 25 H Blood Pressure 158/74 H 159/83 H 166/78 H Pulse Oximetry 91 L 100 100 07/05/18 00:30 07/05/18 01:00 07/05/18 01:25 Temperature Pulse Rate 65 72 65 Respiratory Rate 36 H 32 H 25 H Blood Pressure 170/79 H 150/108 H 162/77 H Pulse Oximetry 100 87 L 97 07/05/18 01:30 07/05/18 02:00 07/05/18 02:30 Temperature Pulse Rate 71 65 72 Respiratory Rate 27 H 26 H 26 H Blood Pressure 162/78 H 176/82 H 169/76 H Pulse Oximetry 80 L 92 L 92 L 07/05/18 03:00 07/05/18 03:30 07/05/18 04:00 Temperature Pulse Rate 66 69 71 Respiratory Rate 28 H 26 H 29 H Blood Pressure 190/82 H 178/77 H 152/74 H Pulse Oximetry 99 82 L 86 L 07/05/18 04:30 07/05/18 05:00 07/05/18 05:30 Temperature Pulse Rate 68 74 62 Respiratory Rate 26 H 27 H 25 H Blood Pressure 157/74 H 168/79 H 168/77 H Pulse Oximetry 90 L 90 L 98 07/05/18 06:00 07/05/18 06:31 07/05/18 06:38 Temperature Pulse Rate 88 81 68 Respiratory Rate 37 H 44 H 30 H Blood Pressure 174/80 H 184/79 H 176/84 H Pulse Oximetry 91 L 78 L 90 L 07/05/18 07:00 07/05/18 07:14 07/05/18 07:51 Temperature Pulse Rate 69 70 Respiratory Rate 28 H 30 H Blood Pressure 185/85 H 158/68 H Pulse Oximetry 96 91 L 95 Intake & Output 07/04/18 07/05/18 07/05/18 18:59 06:59 18:59 Intake Total 150 / 150 650 / 650 1720 / 1720 Output Total 1200 / 1200 1000 / 1000 Balance 150 / 150 -550 / -550 720 / 720 Weight 56 kg Intake: IV 150 / 150 1000 / 1000 D5W Inj 1,000 ML @ 75 mls/hr IV 1000 / 1000 .CONT .[id number] EVA Rx#:[id number] Levaquin 750 mg Premix Inj 150 150 / 150 ML @ 100 mls/hr IV.SIG Q24H EVA Rx#:[id number] Oral 650 / 650 720 / 720 Output: Urine 1200 / 1200 1000 / 1000 Other: # Voids 4 6 Date of Last Bowel Movement 07/04/18 07/05/18 07/05/18 # Bowel Movements 1 5 6 Narrative: GENERAL: Frail elderly female, lying in bed, no acute distress CHEST: CTA. Nasal cannula oxygen. CARDIOVASCULAR: Normal rate, regular rhythm. ABDOMEN: Soft, minimally tender to deep palpation in the left lower quadrant, better, nondistended. MUSCULOSKELETAL: no edema. NEUROLOGICAL: Alert <Nikia Pires - Last Filed: 07/05/18 10:08> Vital signs: Vital Signs 07/04/18 15:15 07/04/18 15:30 07/04/18 15:45 Temperature Pulse Rate 71 70 71 Respiratory Rate 24 16 14 Blood Pressure 162/82 H 165/78 H 166/80 H Pulse Oximetry 97 98 98 07/04/18 16:00 07/04/18 16:15 07/04/18 16:30 Temperature 97.9 F Pulse Rate 69 72 71 Respiratory Rate 16 15 16 Blood Pressure 159/80 H 135/70 174/87 H Pulse Oximetry 98 96 100 07/04/18 16:35 07/04/18 16:45 07/04/18 17:00 Temperature Pulse Rate 67 74 66 Respiratory Rate 17 17 17 Blood Pressure 173/85 H 175/86 H 173/83 H Pulse Oximetry 100 99 99 07/04/18 17:15 07/04/18 17:22 07/04/18 17:30 Temperature Pulse Rate 68 65 67 Respiratory Rate 14 17 17 Blood Pressure 173/83 H 167/79 H 159/74 H Pulse Oximetry 99 100 100 07/04/18 18:00 07/04/18 18:48 07/04/18 19:00 Temperature Pulse Rate 66 77 77 Respiratory Rate 17 22 20 Blood Pressure 167/79 H 124/64 136/63 Pulse Oximetry 100 93 L 99 07/04/18 19:30 07/04/18 20:00 07/04/18 20:31 Temperature 99.5 F Pulse Rate 75 72 63 Respiratory Rate 19 25 H 29 H Blood Pressure 164/76 H 151/71 H 165/71 H Pulse Oximetry 93 L 99 97 07/04/18 20:38 07/04/18 21:00 07/04/18 21:30 Temperature Pulse Rate 75 68 Respiratory Rate 34 H 26 H Blood Pressure 165/80 H 172/79 H Pulse Oximetry 99 100 99 07/04/18 22:00 07/04/18 22:30 07/04/18 23:00 Temperature Pulse Rate 62 62 65 Respiratory Rate 53 H 44 H 26 H Blood Pressure 163/77 H 176/75 H 158/74 H Pulse Oximetry 99 94 L 91 L 07/04/18 23:30 07/05/18 00:00 07/05/18 00:30 Temperature 99.5 F Pulse Rate 69 65 65 Respiratory Rate 24 25 H 36 H Blood Pressure 159/83 H 166/78 H 170/79 H Pulse Oximetry 100 100 100 07/05/18 01:00 07/05/18 01:25 07/05/18 01:30 Temperature Pulse Rate 72 65 71 Respiratory Rate 32 H 25 H 27 H Blood Pressure 150/108 H 162/77 H 162/78 H Pulse Oximetry 87 L 97 80 L 07/05/18 02:00 07/05/18 02:30 07/05/18 03:00 Temperature Pulse Rate 65 72 66 Respiratory Rate 26 H 26 H 28 H Blood Pressure 176/82 H 169/76 H 190/82 H Pulse Oximetry 92 L 92 L 99 07/05/18 03:30 07/05/18 04:00 07/05/18 04:30 Temperature Pulse Rate 69 71 68 Respiratory Rate 26 H 29 H 26 H Blood Pressure 178/77 H 152/74 H 157/74 H Pulse Oximetry 82 L 86 L 90 L 07/05/18 05:00 07/05/18 05:30 07/05/18 06:00 Temperature Pulse Rate 74 62 88 Respiratory Rate 27 H 25 H 37 H Blood Pressure 168/79 H 168/77 H 174/80 H Pulse Oximetry 90 L 98 91 L 07/05/18 06:31 07/05/18 06:38 07/05/18 07:00 Temperature Pulse Rate 81 68 69 Respiratory Rate 44 H 30 H 28 H Blood Pressure 184/79 H 176/84 H 185/85 H Pulse Oximetry 78 L 90 L 96 07/05/18 07:14 07/05/18 07:51 07/05/18 08:00 Temperature 97.8 F Pulse Rate 70 57 L Respiratory Rate 30 H 24 Blood Pressure 158/68 H 163/78 H Pulse Oximetry 91 L 95 98 07/05/18 09:00 07/05/18 10:00 07/05/18 11:00 Temperature Pulse Rate 68 68 65 Respiratory Rate Blood Pressure Pulse Oximetry 07/05/18 12:00 07/05/18 13:00 07/05/18 14:00 Temperature 98.2 F Pulse Rate 104 H 69 72 Respiratory Rate 24 Blood Pressure 153/104 H Pulse Oximetry 99 Intake & Output 07/04/18 07/05/18 07/05/18 18:59 06:59 18:59 Intake Total 150 / 150 650 / 650 1720 / 1720 Output Total 1200 / 1200 1000 / 1000 Balance 150 / 150 -550 / -550 720 / 720 Weight 56 kg Intake: IV 150 / 150 1000 / 1000 D5W Inj 1,000 ML @ 75 mls/hr IV 1000 / 1000 .CONT .[id number] EVA Rx#:[id number] Levaquin 750 mg Premix Inj 150 150 / 150 ML @ 100 mls/hr IV.SIG Q24H EVA Rx#:[id number] Oral 650 / 650 720 / 720 Output: Urine 1200 / 1200 1000 / 1000 Other: # Voids 4 6 Date of Last Bowel Movement 07/04/18 07/05/18 07/05/18 # Bowel Movements 1 5 6 <Ivan Dean E - Last Filed: 07/05/18 15:05> Results - Labs CBC & Chem 7: 07/04/18 04:46 07/04/18 04:46 Laboratory Results - last 24 hr 07/04/18 22:50 Nasal Screen MRSA (PCR) Not detected Microbiology 07/03/18 03:00 Blood - Peripheral Aerobic Blood Culture - Preliminary No growth in 1 day 07/03/18 03:00 Blood - Peripheral Anaerobic Blood Culture - Preliminary No growth in 1 day 07/03/18 02:55 Blood - Peripheral Aerobic Blood Culture - Preliminary No growth in 1 day 07/03/18 02:55 Blood - Peripheral Anaerobic Blood Culture - Preliminary No growth in 1 day <TammyteresitaNikia - Last Filed: 07/05/18 10:08> - Labs CBC & Chem 7: 07/05/18 13:02 07/05/18 13:02 Laboratory Results - last 24 hr 07/04/18 07/05/18 07/05/18 22:50 12:14 13:02 WBC 10.5 RBC 3.98 L Hgb 10.0 L Hct 31.2 L MCV 78.2 L D MCH 25.2 L MCHC 32.2 RDW 16.8 Plt Count 238 D MPV 8.5 Neut % (Auto) 85.4 H Lymph % (Auto) 8.3 L [place] % (Auto) 5.7 Eos % (Auto) 0.2 Baso % (Auto) 0.4 Neut # (Auto) 9.0 H Lymph # (Auto) 0.9 L [place] # (Auto) 0.6 Eos # (Auto) 0.0 Baso # (Auto) 0.0 WBC Differential . Differential Comment Auto diff final Sodium Potassium Chloride Carbon Dioxide Anion Gap BUN Creatinine Estimated GFR POC Glucose 123 H Random Glucose Calcium Nasal Screen MRSA (PCR) Not detected 07/05/18 13:02 WBC RBC Hgb Hct MCV MCH MCHC RDW Plt Count MPV Neut % (Auto) Lymph % (Auto) [place] % (Auto) Eos % (Auto) Baso % (Auto) Neut # (Auto) Lymph # (Auto) [place] # (Auto) Eos # (Auto) Baso # (Auto) WBC Differential Differential Comment Sodium 139 Potassium 2.8 L* D Chloride 106 D Carbon Dioxide 23.3 Anion Gap 10 BUN 8 Creatinine 0.62 Estimated GFR Greater than 89 POC Glucose Random Glucose 128 H Calcium 7.8 L Nasal Screen MRSA (PCR) Microbiology 07/03/18 03:00 Blood - Peripheral Aerobic Blood Culture - Preliminary No growth in 2 days 07/03/18 03:00 Blood - Peripheral Anaerobic Blood Culture - Preliminary No growth in 2 days 07/03/18 02:55 Blood - Peripheral Aerobic Blood Culture - Preliminary No growth in 2 days 07/03/18 02:55 Blood - Peripheral Anaerobic Blood Culture - Preliminary No growth in 2 days <Ivan Dean - Last Filed: 07/05/18 15:05> Assessment and Plan - Plan - Coffee ground emesis- [facility] from [facility] for episode of coffee- ground emesis, fever and hypoxia. On admission Hemoglobin 9.4, previously on 05-05 was 9.2 . No bleeding reported since admission. No bloody stools. no hgb today, has been a slight drop. - Acute diverticulitis- According to son, pt with known hx of this in the past but hasn't had an attack for few yrs Abdomen/Pelvis CT 07/03/18 1. Findings consistent with moderate sigmoid diverticulitis. No perforation or abscess at this time. Consider colonoscopy following appropriate course of treatment given the long segment involvement to exclude possible malignancy. 2. Moderate gastric distention. 3. Moderate stool in the rectum. 4. 9 mm calcification in the posterior right bladder near the UVJ. No significant right-sided hydronephrosis. 5. 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 Generally, sub-2 cm visceral artery aneurysms are not treated. 6. Indeterminate density 3.3 cm cystic lesion in the posterior mid left kidney. Consider 6 month follow-up ultrasound exam. 7. L2 compression fracture of unknown chronicity given the lack of recent prior exams. Status post cement augmentation at L4. - Pneumonia- CXR with patchy airspace disease left lower lobe concerning for pneumonia. - Sepsis/leukocytosis- Improving , Abx, likely secondary to above, blood cx No growth so far - High troponin- possibly due to increase demand - Dementia - hx of COPD, HTN per attending Plan: - healthy diet - EGD/colonoscopy once medically stable - No signs of active bleed - CEA 13.2 - DC Octreotide - Switch Protonix to PO - CBC in the am - Monitor hh - Transfuse as needed - Notify GI for active bleed - cont Zosyn and Levaquin - Bowel regimen - IV fluids - Supportive care - Pt seen and examined by Dr. Dean and myself and this note is written on his behalf. <Nikia Pires - Last Filed: 07/05/18 10:08> - Attending Attestation Patient seen and examined Agree with above Continue with current supportive care Monitor labs Endoscopy once clinically stable <Ivan Dean - Last Filed: 07/05/18 15:05>
[2018-07-05 13:39] LABS: Baso % (Auto) 0.4 % (0.0-2.0); Eos % (Auto) 0.2 % (0.0-4.0); Hematocrit 31.2 % (35.0-46.0); Lymph # (Auto) 0.9 th/mm3 (1.0-4.8); Lymph % (Auto) 8.3 % (9.0-44.0); Mean Corpuscular HGB Conc 32.2 % (32.0-36.0); Mean Corpuscular Hemoglobin 25.2 pg (27.0-34.0); Mean Corpuscular Volume 78.2 fL (80.0-100.0); Mean Platelet Volume 8.5 fL (7.0-11.0); Mono # (Auto) 0.6 th/mm3 (0.0-0.9); Mono % (Auto) 5.7 % (0.0-8.0); Neut % (Auto) 85.4 % (16.0-70.0); Platelet Count 238 th/mm3 (150-450); Red Blood Count 3.98 mil/mm3 (4.00-5.30); Red Cell Distribution Width 16.8 % (11.6-17.2); White Blood Count 10.5 th/mm3 (4.0-11.0)
[2018-07-05 14:07] LABS: Anion Gap 10 meq/L (5-15); Blood Urea Nitrogen 8 mg/dL (7-18); Calcium 7.8 mg/dL (8.5-10.1); Carbon Dioxide 23.3 meq/L (21.0-32.0); Chloride 106 meq/L (98-107); Glomerular Filtration Rate Greater Than 89 mL/min (>89); Glucose,Random 128 mg/dL (74-106); Sodium 139 meq/L (136-145)
[2018-07-05 14:13] LABS: Potassium 2.8 meq/L (3.5-5.1)
[2018-07-05] MEDS: Potassium Chlor 20 mEq Premix 20 MEQ/100 ML PIGGYBACK IV.SIG SCH ×2 (16:35→20:38)
--- NOTE | 2018-07-05 18:08 | P.PN ---
Subjective Interval history: Follow-up for severe sepsis, pneumonia, diverticulitis. Patient is somewhat agitated but remains pleasant. Asks for some water. No fever, chills. Physical Exam Vital signs: Vital Signs 07/04/18 18:48 07/04/18 19:00 07/04/18 19:30 Temperature Pulse Rate 77 77 75 Respiratory Rate 22 20 19 Blood Pressure 124/64 136/63 164/76 H Pulse Oximetry 93 L 99 93 L 07/04/18 20:00 07/04/18 20:31 07/04/18 20:38 Temperature 99.5 F Pulse Rate 72 63 Respiratory Rate 25 H 29 H Blood Pressure 151/71 H 165/71 H Pulse Oximetry 99 97 99 07/04/18 21:00 07/04/18 21:30 07/04/18 22:00 Temperature Pulse Rate 75 68 62 Respiratory Rate 34 H 26 H 53 H Blood Pressure 165/80 H 172/79 H 163/77 H Pulse Oximetry 100 99 99 07/04/18 22:30 07/04/18 23:00 07/04/18 23:30 Temperature Pulse Rate 62 65 69 Respiratory Rate 44 H 26 H 24 Blood Pressure 176/75 H 158/74 H 159/83 H Pulse Oximetry 94 L 91 L 100 07/05/18 00:00 07/05/18 00:30 07/05/18 01:00 Temperature 99.5 F Pulse Rate 65 65 72 Respiratory Rate 25 H 36 H 32 H Blood Pressure 166/78 H 170/79 H 150/108 H Pulse Oximetry 100 100 87 L 07/05/18 01:25 07/05/18 01:30 07/05/18 02:00 Temperature Pulse Rate 65 71 65 Respiratory Rate 25 H 27 H 26 H Blood Pressure 162/77 H 162/78 H 176/82 H Pulse Oximetry 97 80 L 92 L 07/05/18 02:30 07/05/18 03:00 07/05/18 03:30 Temperature Pulse Rate 72 66 69 Respiratory Rate 26 H 28 H 26 H Blood Pressure 169/76 H 190/82 H 178/77 H Pulse Oximetry 92 L 99 82 L 07/05/18 04:00 07/05/18 04:30 07/05/18 05:00 Temperature Pulse Rate 71 68 74 Respiratory Rate 29 H 26 H 27 H Blood Pressure 152/74 H 157/74 H 168/79 H Pulse Oximetry 86 L 90 L 90 L 07/05/18 05:30 07/05/18 06:00 07/05/18 06:31 Temperature Pulse Rate 62 88 81 Respiratory Rate 25 H 37 H 44 H Blood Pressure 168/77 H 174/80 H 184/79 H Pulse Oximetry 98 91 L 78 L 07/05/18 06:38 07/05/18 07:00 07/05/18 07:14 Temperature Pulse Rate 68 69 70 Respiratory Rate 30 H 28 H 30 H Blood Pressure 176/84 H 185/85 H 158/68 H Pulse Oximetry 90 L 96 91 L 07/05/18 07:51 07/05/18 08:00 07/05/18 09:00 Temperature 97.8 F Pulse Rate 57 L 68 Respiratory Rate 24 Blood Pressure 163/78 H Pulse Oximetry 95 98 07/05/18 10:00 07/05/18 11:00 07/05/18 12:00 Temperature 98.2 F Pulse Rate 68 65 104 H Respiratory Rate 24 Blood Pressure 153/104 H Pulse Oximetry 99 07/05/18 13:00 07/05/18 14:00 07/05/18 15:00 Temperature Pulse Rate 69 72 83 Respiratory Rate Blood Pressure Pulse Oximetry Intake & Output 07/04/18 07/05/18 07/05/18 18:59 06:59 18:59 Intake Total 150 / 150 650 / 650 1720 / 1720 Output Total 1200 / 1200 1000 / 1000 Balance 150 / 150 -550 / -550 720 / 720 Weight 56 kg Intake: IV 150 / 150 1000 / 1000 D5W Inj 1,000 ML @ 75 mls/hr IV 1000 / 1000 .CONT .[id number] EVA Rx#:[id number] Levaquin 750 mg Premix Inj 150 150 / 150 ML @ 100 mls/hr IV.SIG Q24H EVA Rx#:[id number] Oral 650 / 650 720 / 720 Output: Urine 1200 / 1200 1000 / 1000 Other: # Voids 4 6 Date of Last Bowel Movement 07/04/18 07/05/18 07/05/18 # Bowel Movements 1 5 6 Results - Labs CBC & Chem 7: 07/05/18 13:02 07/05/18 13:02 Laboratory Results - last 24 hr 07/04/18 07/05/18 07/05/18 22:50 12:14 13:02 WBC 10.5 RBC 3.98 L Hgb 10.0 L Hct 31.2 L MCV 78.2 L D MCH 25.2 L MCHC 32.2 RDW 16.8 Plt Count 238 D MPV 8.5 Neut % (Auto) 85.4 H Lymph % (Auto) 8.3 L [place] % (Auto) 5.7 Eos % (Auto) 0.2 Baso % (Auto) 0.4 Neut # (Auto) 9.0 H Lymph # (Auto) 0.9 L [place] # (Auto) 0.6 Eos # (Auto) 0.0 Baso # (Auto) 0.0 WBC Differential . Differential Comment Auto diff final Sodium Potassium Chloride Carbon Dioxide Anion Gap BUN Creatinine Estimated GFR POC Glucose 123 H Random Glucose Calcium Nasal Screen MRSA (PCR) Not detected 07/05/18 13:02 WBC RBC Hgb Hct MCV MCH MCHC RDW Plt Count MPV Neut % (Auto) Lymph % (Auto) [place] % (Auto) Eos % (Auto) Baso % (Auto) Neut # (Auto) Lymph # (Auto) [place] # (Auto) Eos # (Auto) Baso # (Auto) WBC Differential Differential Comment Sodium 139 Potassium 2.8 L* D Chloride 106 D Carbon Dioxide 23.3 Anion Gap 10 BUN 8 Creatinine 0.62 Estimated GFR Greater than 89 POC Glucose Random Glucose 128 H Calcium 7.8 L Nasal Screen MRSA (PCR) Microbiology 07/03/18 03:00 Blood - Peripheral Aerobic Blood Culture - Preliminary No growth in 2 days 07/03/18 03:00 Blood - Peripheral Anaerobic Blood Culture - Preliminary No growth in 2 days 07/03/18 02:55 Blood - Peripheral Aerobic Blood Culture - Preliminary No growth in 2 days 07/03/18 02:55 Blood - Peripheral Anaerobic Blood Culture - Preliminary No growth in 2 days Assessment and Plan - Assessment (1) Sepsis Code(s): A41.9 - Sepsis, unspecified organism Status: Acute (2) PNA (pneumonia) Code(s): J18.9 - Pneumonia, unspecified organism Status: Acute (3) GI bleed Code(s): K92.2 - Gastrointestinal hemorrhage, unspecified Status: Acute (4) COPD (chronic obstructive pulmonary disease) Code(s): J44.9 - Chronic obstructive pulmonary disease, unspecified Status: Acute (5) Elevated troponin Code(s): R74.8 - Abnormal levels of other serum enzymes Status: Acute - Plan This is a 72-year-old female with a history of dementia who presented with abdominal pain was found to have acute diverticulitis as well as a questionable GI bleed. She was admitted to the medical floor and started on Levaquin and Zosyn. Throughout the morning she developed worsening hypotension with lactic acidosis. She was given 2 L IV fluid bolus which initially did not respond to and she was emergently transferred to the ICU. Once patient was transferred to ICU, she did not require any pressors, her hemodynamic status improved. She was observed in the ICU overnight (07/03/2018) and subsequently care was transferred back to hospitalist service. Severe sepsis (HR 105, Resp 27, Lactic acid 2.7, Pneumonia, Diverticulitis). Acute diverticulitis Community acquired pneumonia - Patient is currently on Nasal cannula. Wean down O2 to keep O2 sat > 90% - Continue Levaquin 750mg IV Qday and Flagyl 500mg PO TID. - Levaquin will cover CAP and Levaquin/Flagyl combo will cover Diverticulitis - Okay to transfer to the floor. Currently on Cardiac diet. - WBC improved from 21.6K --> 10.5. Mild hypernatremia Hypokalemia - Will replace with IV KCL - Na improved from 148 --> 143. Upper GI bleed - discontinued Octreotide drip. - Protonix 40mg PO - GI is following. When medically stable, patient will likely need EGD. - Patient is already on Levaquin. Mild agitation - will start Seroquel 25mg BID. Full code. SCDs.
[2018-07-05] MEDS: QUEtiapine 25 MG Tablet PO SCH (20:40)
[2018-07-05] MEDS: Octreotide Inj 500 MCG in Sodium Chlor 0.9% Inj 500 ML IV.CONT SCH (22:41)
[2018-07-05] MEDS: Sod Chloride 0.9% Inj 1,000 ML IV.CONT SCH (22:41)
[2018-07-06] MEDS: metroNIDAZOLE 500 MG Tablet PO SCH ×3 (05:43→21:00)
[2018-07-06] MEDS: Chlorhexidine Gluconate 2% 1 Pack (2 Cloths) TOPICAL SCH (05:43)
[2018-07-06] MEDS ORDERED: Pharmacy Ordered Lab Info OTHER ONE (05:45)
[2018-07-06 05:56] LABS: Baso # (Auto) 0.1 th/mm3 (0.0-0.2); Baso % (Auto) 0.5 % (0.0-2.0); Eos % (Auto) 0.4 % (0.0-4.0); Hematocrit 30.8 % (35.0-46.0); Hemoglobin 9.9 gm/dL (11.6-15.3); Lymph # (Auto) 1.4 th/mm3 (1.0-4.8); Mean Corpuscular HGB Conc 32.1 % (32.0-36.0); Mean Corpuscular Hemoglobin 25.1 pg (27.0-34.0); Mean Corpuscular Volume 78.1 fL (80.0-100.0); Mean Platelet Volume 8.7 fL (7.0-11.0); Mono # (Auto) 0.9 th/mm3 (0.0-0.9); Mono % (Auto) 8.6 % (0.0-8.0); Neut # (Auto) 8.3 th/mm3 (1.8-7.7); Neut % (Auto) 77.5 % (16.0-70.0); Platelet Count 235 th/mm3 (150-450); Red Blood Count 3.95 mil/mm3 (4.00-5.30); Red Cell Distribution Width 16.6 % (11.6-17.2); White Blood Count 10.7 th/mm3 (4.0-11.0)
[2018-07-06] MEDS: QUEtiapine 25 MG Tablet PO SCH ×2 (08:25→20:55)
[2018-07-06] MEDS: Senna/Docusate Sodium 8.6/50 MG Tablet PO SCH ×2 (08:25→20:56)
[2018-07-06 09:01] LABS: Calcium 8.3 mg/dL (8.5-10.1); Carbon Dioxide 26.4 meq/L (21.0-32.0)
[2018-07-06 09:19] LABS: Potassium 2.8 meq/L (3.5-5.1)
[2018-07-06] MEDS ORDERED: Potassium Chlor 20 mEq Premix 20 MEQ/100 ML PIGGYBACK IV.SIG SCH (09:30)
[2018-07-06] MEDS: Mag Sulf 1 gm/100 ml Premix 100 ML IV.SIG SCH ×2 (10:13→13:00)
--- NOTE | 2018-07-06 11:23 | P.PNGI ---
Subjective Interval history: Patient remains in the intensive care setting but appears more alert and attempting some simple conversation. Does note some lower abdominal discomfort with continued loose stool 1 this a.m. No nausea no vomiting Physical Exam Vital signs: Vital Signs 07/05/18 12:00 07/05/18 13:00 07/05/18 14:00 Temperature 98.2 F Pulse Rate 104 H 69 72 Respiratory Rate 24 Blood Pressure 153/104 H Pulse Oximetry 99 07/05/18 15:00 07/05/18 16:00 07/05/18 17:00 Temperature 98 F Pulse Rate 83 78 57 L Respiratory Rate 24 Blood Pressure 116/78 Pulse Oximetry 99 07/05/18 18:00 07/05/18 19:00 07/05/18 19:30 Temperature Pulse Rate 82 88 Respiratory Rate Blood Pressure Pulse Oximetry 99 07/05/18 20:00 07/05/18 21:00 07/05/18 22:00 Temperature 98.2 F Pulse Rate 82 82 71 Respiratory Rate 22 Blood Pressure 172/75 H Pulse Oximetry 94 L 07/05/18 23:00 07/06/18 00:00 07/06/18 01:00 Temperature 97.9 F Pulse Rate 79 80 79 Respiratory Rate 29 H Blood Pressure 144/68 H Pulse Oximetry 94 L 07/06/18 02:00 07/06/18 03:00 07/06/18 04:00 Temperature 98.5 F Pulse Rate 72 79 89 Respiratory Rate 26 H Blood Pressure 133/71 Pulse Oximetry 92 L 07/06/18 05:00 07/06/18 06:00 07/06/18 07:00 Temperature Pulse Rate 75 69 71 Respiratory Rate Blood Pressure Pulse Oximetry 07/06/18 08:00 Temperature 98.8 F Pulse Rate 65 Respiratory Rate 26 H Blood Pressure 159/72 H Pulse Oximetry 96 Intake & Output 07/05/18 07/06/18 07/06/18 18:59 06:59 18:59 Intake Total 2470.5 / 2470.5 3438.0 / 3438.0 Output Total 1000 / 1000 3000 / 3000 Balance 1470.5 / 1470.5 438.0 / 438.0 Weight 48 kg Intake: IV 1750.5 / 1750.5 2958.0 / 2958.0 D5W Inj 1,000 ML @ 75 mls/hr IV 1000 / 1000 1000 / 1000 .CONT .[id number] EVA Rx#:[id number] SandoSTATIN Inj 500 MCG In NS 500.5 / 500.5 Inj 500 ML @ 25 MCG/HR 25.02 mls/hr IV.CONT .Q20H1M EVA Rx#: [id number] Levaquin 750 mg Premix Inj 150 150 / 150 ML @ 100 mls/hr IV.SIG Q24H EVA Rx#:[id number] KCl 20 mEq Premix Inj 20 meq In 100 / 100 100 / 100 100 ml @ 50 mls/hr IV.SIG Q2H EVA Rx#:[id number] Oral 720 / 720 480 / 480 Output: Urine 1000 / 1000 3000 / 3000 Other: # Voids 6 6 # Incontinent Voids 7 Date of Last Bowel Movement 07/05/18 07/06/18 07/06/18 # Bowel Movements 6 2 - Constitutional mild distress, thin, cachectic - Routine HEENT Exam Head: Present: normocephalic ENT: Present: mucous membranes dry - Routine Neck Exam Present: supple - Routine Respiratory Exam Present: accessory muscle use (Even, unlabored at rest) - Routine Cardiovascular Exam Present: S1, S2 - Routine Abdominal Exam Present: soft (Flat,), tenderness (Mild lower abdominal tenderness) - Routine Skin Exam Present: pallor (Thin turgor) - Detailed Neurological Exam: Coma Scale Motor Response: Localizing Results - Labs CBC & Chem 7: 07/06/18 04:51 07/06/18 08:08 Laboratory Results - last 24 hr 07/05/18 07/05/18 07/05/18 12:14 13:02 13:02 WBC 10.5 RBC 3.98 L Hgb 10.0 L Hct 31.2 L MCV 78.2 L D MCH 25.2 L MCHC 32.2 RDW 16.8 Plt Count 238 D MPV 8.5 Neut % (Auto) 85.4 H Lymph % (Auto) 8.3 L [place] % (Auto) 5.7 Eos % (Auto) 0.2 Baso % (Auto) 0.4 Neut # (Auto) 9.0 H Lymph # (Auto) 0.9 L [place] # (Auto) 0.6 Eos # (Auto) 0.0 Baso # (Auto) 0.0 WBC Differential . Differential Comment Auto diff final Sodium 139 Potassium 2.8 L* D Chloride 106 D Carbon Dioxide 23.3 Anion Gap 10 BUN 8 Creatinine 0.62 Estimated GFR Greater than 89 POC Glucose 123 H Random Glucose 128 H Calcium 7.8 L 07/06/18 07/06/18 04:51 08:08 WBC 10.7 RBC 3.95 L Hgb 9.9 L Hct 30.8 L MCV 78.1 L MCH 25.1 L MCHC 32.1 RDW 16.6 Plt Count 235 MPV 8.7 Neut % (Auto) 77.5 H Lymph % (Auto) 13.0 [place] % (Auto) 8.6 H Eos % (Auto) 0.4 Baso % (Auto) 0.5 Neut # (Auto) 8.3 H Lymph # (Auto) 1.4 [place] # (Auto) 0.9 Eos # (Auto) 0.0 Baso # (Auto) 0.1 WBC Differential . Differential Comment Auto diff final Sodium 141 Potassium 2.8 L* Chloride 105 Carbon Dioxide 26.4 Anion Gap 10 BUN 6 L Creatinine 0.73 Estimated GFR 79 L POC Glucose Random Glucose 104 Calcium 8.3 L Microbiology 07/03/18 03:00 Blood - Peripheral Aerobic Blood Culture - Preliminary No growth in 3 days 07/03/18 03:00 Blood - Peripheral Anaerobic Blood Culture - Preliminary No growth in 3 days 07/03/18 02:55 Blood - Peripheral Aerobic Blood Culture - Preliminary No growth in 3 days 07/03/18 02:55 Blood - Peripheral Anaerobic Blood Culture - Preliminary No growth in 3 days Assessment and Plan - Plan - Coffee ground emesis- was sent to the ER from [facility] for episode of coffee- ground emesis, fever and hypoxia. On admission Hemoglobin 9.4, previously on 05-05 was 9.2 . No bleeding reported since admission. No bloody stools. no hgb today, has been a slight drop. - Acute diverticulitis- According to son, pt with known hx of this in the past but hasn't had an attack for few yrs Abdomen/Pelvis CT 07/03/18 1. Findings consistent with moderate sigmoid diverticulitis. No perforation or abscess at this time. Consider colonoscopy following appropriate course of treatment given the long segment involvement to exclude possible malignancy. 2. Moderate gastric distention. 3. Moderate stool in the rectum. 4. 9 mm calcification in the posterior right bladder near the UVJ. No significant right-sided hydronephrosis. 5. 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 Generally, sub-2 cm visceral artery aneurysms are not treated. 6. Indeterminate density 3.3 cm cystic lesion in the posterior mid left kidney. Consider 6 month follow-up ultrasound exam. 7. L2 compression fracture of unknown chronicity given the lack of recent prior exams. Status post cement augmentation at L4. - Pneumonia- CXR with patchy airspace disease left lower lobe concerning for pneumonia. - Sepsis/leukocytosis- Improving , Abx, likely secondary to above, blood cx No growth so far - High troponin- possibly due to increase demand - Dementia - hx of COPD, HTN per attending 07/06/2018 patient continues in the intensive care setting, but does appear to show some gradual improvement, still with generalized weakness but more alert. Anemia probable acute on chronic current hemoglobin stable at 9.9 Coffee-ground emesis none seen today. Patient's hemoglobin on 07/03/2018 was 7.7 Hypokalemia being treated per attending, Moderate sigmoid diverticulitis per CT which explains patient's lower abdominal cramping and discomfort as well as loose stools Decreased appetite probably related to her acute and comorbidity issues. Plan: Diet soft foods, including supplements and/or milkshakes Consider EGD when patient is stable, colonoscopy can be on an outpatient 6 weeks Monitor labs, especially hemoglobin and monitor for any signs of acute bleeding if so call GI PPI, bowel regimen as needed Zosyn and Levaquin continue Supportive care Patient was seen per myself and Dr. Dean, note was written on his behalf
[2018-07-06] MEDS: Potassium Chlor 20 mEq Premix 20 MEQ/100 ML PIGGYBACK IV.SIG SCH ×3 (13:00→20:57)
--- NOTE | 2018-07-06 13:27 | P.PN ---
Subjective Interval history: Follow-up for severe sepsis, pneumonia, diverticulitis. Patient is doing well. She reports no acute concerns. No fever, chills. When asked about her home environment, she says her son is good to her. Physical Exam Vital signs: Vital Signs 07/05/18 14:00 07/05/18 15:00 07/05/18 16:00 Temperature 98 F Pulse Rate 72 83 78 Respiratory Rate 24 Blood Pressure 116/78 Pulse Oximetry 99 07/05/18 17:00 07/05/18 18:00 07/05/18 19:00 Temperature Pulse Rate 57 L 82 88 Respiratory Rate Blood Pressure Pulse Oximetry 07/05/18 19:30 07/05/18 20:00 07/05/18 21:00 Temperature 98.2 F Pulse Rate 82 82 Respiratory Rate 22 Blood Pressure 172/75 H Pulse Oximetry 99 94 L 07/05/18 22:00 07/05/18 23:00 07/06/18 00:00 Temperature 97.9 F Pulse Rate 71 79 80 Respiratory Rate 29 H Blood Pressure 144/68 H Pulse Oximetry 94 L 07/06/18 01:00 07/06/18 02:00 07/06/18 03:00 Temperature Pulse Rate 79 72 79 Respiratory Rate Blood Pressure Pulse Oximetry 07/06/18 04:00 07/06/18 05:00 07/06/18 06:00 Temperature 98.5 F Pulse Rate 89 75 69 Respiratory Rate 26 H Blood Pressure 133/71 Pulse Oximetry 92 L 07/06/18 07:00 07/06/18 08:00 07/06/18 09:00 Temperature 98.8 F Pulse Rate 71 70 72 Respiratory Rate 26 H Blood Pressure 159/72 H Pulse Oximetry 96 07/06/18 10:00 07/06/18 11:00 Temperature Pulse Rate 71 69 Respiratory Rate Blood Pressure Pulse Oximetry Intake & Output 07/05/18 07/06/18 07/06/18 18:59 06:59 18:59 Intake Total 2470.5 / 2470.5 3438.0 / 3438.0 Output Total 1000 / 1000 3000 / 3000 Balance 1470.5 / 1470.5 438.0 / 438.0 Weight 48 kg Intake: IV 1750.5 / 1750.5 2958.0 / 2958.0 D5W Inj 1,000 ML @ 75 mls/hr IV 1000 / 1000 1000 / 1000 .CONT .[id number] EVA Rx#:[id number] SandoSTATIN Inj 500 MCG In NS 500.5 / 500.5 Inj 500 ML @ 25 MCG/HR 25.02 mls/hr IV.CONT .Q20H1M EVA Rx#: [id number] Levaquin 750 mg Premix Inj 150 150 / 150 ML @ 100 mls/hr IV.SIG Q24H EVA Rx#:[id number] KCl 20 mEq Premix Inj 20 meq In 100 / 100 100 / 100 100 ml @ 50 mls/hr IV.SIG Q2H EVA Rx#:[id number] Oral 720 / 720 480 / 480 Output: Urine 1000 / 1000 3000 / 3000 Other: # Voids 6 6 # Incontinent Voids 7 Date of Last Bowel Movement 07/05/18 07/06/18 07/06/18 # Bowel Movements 6 2 Narrative: GENERAL: Frail elderly female, lying in bed, no acute distress CHEST: CTA. Nasal cannula oxygen. CARDIOVASCULAR: Normal rate, regular rhythm. ABDOMEN: Soft, minimally tender to deep palpation in the left lower quadrant, better, nondistended. MUSCULOSKELETAL: no edema. NEUROLOGICAL: Alert Results - Labs CBC & Chem 7: 07/06/18 04:51 07/06/18 08:08 Laboratory Results - last 24 hr 07/05/18 07/05/18 07/06/18 13:02 13:02 04:51 WBC 10.5 10.7 RBC 3.98 L 3.95 L Hgb 10.0 L 9.9 L Hct 31.2 L 30.8 L MCV 78.2 L D 78.1 L MCH 25.2 L 25.1 L MCHC 32.2 32.1 RDW 16.8 16.6 Plt Count 238 D 235 MPV 8.5 8.7 Neut % (Auto) 85.4 H 77.5 H Lymph % (Auto) 8.3 L 13.0 [place] % (Auto) 5.7 8.6 H Eos % (Auto) 0.2 0.4 Baso % (Auto) 0.4 0.5 Neut # (Auto) 9.0 H 8.3 H Lymph # (Auto) 0.9 L 1.4 [place] # (Auto) 0.6 0.9 Eos # (Auto) 0.0 0.0 Baso # (Auto) 0.0 0.1 WBC Differential . . Differential Comment Auto diff final Auto diff final Sodium 139 Potassium 2.8 L* D Chloride 106 D Carbon Dioxide 23.3 Anion Gap 10 BUN 8 Creatinine 0.62 Estimated GFR Greater than 89 Random Glucose 128 H Calcium 7.8 L 07/06/18 08:08 WBC RBC Hgb Hct MCV MCH MCHC RDW Plt Count MPV Neut % (Auto) Lymph % (Auto) [place] % (Auto) Eos % (Auto) Baso % (Auto) Neut # (Auto) Lymph # (Auto) [place] # (Auto) Eos # (Auto) Baso # (Auto) WBC Differential Differential Comment Sodium 141 Potassium 2.8 L* Chloride 105 Carbon Dioxide 26.4 Anion Gap 10 BUN 6 L Creatinine 0.73 Estimated GFR 79 L Random Glucose 104 Calcium 8.3 L Microbiology 07/03/18 03:00 Blood - Peripheral Aerobic Blood Culture - Preliminary No growth in 3 days 07/03/18 03:00 Blood - Peripheral Anaerobic Blood Culture - Preliminary No growth in 3 days 07/03/18 02:55 Blood - Peripheral Aerobic Blood Culture - Preliminary No growth in 3 days 07/03/18 02:55 Blood - Peripheral Anaerobic Blood Culture - Preliminary No growth in 3 days Assessment and Plan - Assessment (1) Sepsis Code(s): A41.9 - Sepsis, unspecified organism Status: Acute (2) PNA (pneumonia) Code(s): J18.9 - Pneumonia, unspecified organism Status: Acute (3) GI bleed Code(s): K92.2 - Gastrointestinal hemorrhage, unspecified Status: Acute (4) COPD (chronic obstructive pulmonary disease) Code(s): J44.9 - Chronic obstructive pulmonary disease, unspecified Status: Acute (5) Elevated troponin Code(s): R74.8 - Abnormal levels of other serum enzymes Status: Acute - Plan This is a 72-year-old female with a history of dementia who presented with abdominal pain was found to have acute diverticulitis as well as a questionable GI bleed. She was admitted to the medical floor and started on Levaquin and Zosyn. Throughout the morning she developed worsening hypotension with lactic acidosis. She was given 2 L IV fluid bolus which initially did not respond to and she was emergently transferred to the ICU. Once patient was transferred to ICU, she did not require any pressors, her hemodynamic status improved. She was observed in the ICU overnight (07/03/2018) and subsequently care was transferred back to hospitalist service. Severe sepsis (HR 105, Resp 27, Lactic acid 2.7, Pneumonia, Diverticulitis). Acute diverticulitis Community acquired pneumonia - Patient is currently on Nasal cannula. Wean down O2 to keep O2 sat > 90% - Continue Levaquin 750mg IV Qday and Flagyl 500mg PO TID. - Levaquin will cover CAP and Levaquin/Flagyl combo will cover Diverticulitis - Okay to transfer to the floor. Currently on mechanical soft diet. - WBC improved from 21.6K --> 10.5. Mild hypernatremia Hypokalemia - Will replace with IV KCL while in the ICU. If IV KCL administration proves to be difficult for patient, we can use liquid KCL. - Na improved from 148 --> 141. Upper GI bleed - discontinued Octreotide drip. - Protonix 40mg PO - GI is following. When medically stable, patient will likely need EGD. - Patient is already on Levaquin. - EGD when medically stable. Colonoscopy in 6 weeks. Mild agitation - will continue Seroquel 25mg BID. Agitation is resolved. Transfer to the floor today. Will consult PT. Full code. SCDs.
[2018-07-06] MEDS: Potassium Chloride 25 MEQ Effervescent Tablet PO SCH (20:56)
[2018-07-07] MEDS: Potassium Chlor 20 mEq Premix 20 MEQ/100 ML PIGGYBACK IV.SIG SCH (01:00)
[2018-07-07] MEDS: Chlorhexidine Gluconate 2% 1 Pack (2 Cloths) TOPICAL SCH (04:57)
[2018-07-07] MEDS: metroNIDAZOLE 500 MG Tablet PO SCH ×3 (06:38→21:38)
[2018-07-07] MEDS: Potassium Chloride 25 MEQ Effervescent Tablet PO SCH ×2 (09:03→21:37)
[2018-07-07] MEDS: QUEtiapine 25 MG Tablet PO SCH ×2 (09:04→21:38)
[2018-07-07] MEDS: Senna/Docusate Sodium 8.6/50 MG Tablet PO SCH ×2 (09:04→21:38)
--- NOTE | 2018-07-07 16:01 | P.PN ---
Subjective Interval history: Follow-up for severe sepsis, pneumonia, diverticulitis. Patient is currently doing well. No fever or chills. Patient is alert and pleasant. Physical Exam Vital signs: Vital Signs 07/06/18 16:00 07/06/18 17:00 07/06/18 18:00 Temperature 98.8 F Pulse Rate 75 81 71 Respiratory Rate 24 29 H 26 H Blood Pressure 126/60 139/64 Pulse Oximetry 94 L 07/06/18 19:00 07/06/18 20:00 07/06/18 20:57 Temperature 98 F Pulse Rate 69 74 76 Respiratory Rate 26 H 31 H 27 H Blood Pressure 170/79 H 168/77 H Pulse Oximetry 98 95 07/06/18 21:00 07/06/18 21:19 07/06/18 22:00 Temperature Pulse Rate 74 80 Respiratory Rate 27 H 40 H Blood Pressure 149/67 H Pulse Oximetry 90 L 98 07/06/18 23:00 07/07/18 00:00 07/07/18 01:00 Temperature Pulse Rate 112 H 76 75 Respiratory Rate 30 H 37 H 28 H Blood Pressure 143/65 H Pulse Oximetry 96 07/07/18 02:00 07/07/18 03:00 07/07/18 04:00 Temperature Pulse Rate 83 87 79 Respiratory Rate 30 H 37 H 38 H Blood Pressure 162/77 H 157/72 H Pulse Oximetry 96 07/07/18 04:25 07/07/18 05:00 07/07/18 06:00 Temperature Pulse Rate 79 79 70 Respiratory Rate 23 24 43 H Blood Pressure 157/72 H 166/75 H Pulse Oximetry 82 L 07/07/18 07:00 07/07/18 08:00 07/07/18 08:52 Temperature Pulse Rate 75 71 76 Respiratory Rate 45 H 22 29 H Blood Pressure 189/84 H 143/62 H Pulse Oximetry 81 L 96 95 07/07/18 09:00 07/07/18 10:00 07/07/18 11:00 Temperature 98.5 F Pulse Rate 76 78 75 Respiratory Rate 30 H 21 31 H Blood Pressure 155/72 H 155/72 H Pulse Oximetry 94 L 94 L 07/07/18 12:00 07/07/18 13:00 07/07/18 14:00 Temperature Pulse Rate 74 78 97 H Respiratory Rate 30 H 38 H Blood Pressure 137/65 Pulse Oximetry 84 L 07/07/18 15:00 Temperature Pulse Rate 79 Respiratory Rate Blood Pressure Pulse Oximetry Intake & Output 07/06/18 07/07/18 07/07/18 18:59 06:59 18:59 Intake Total 2300 / 2300 540 / 540 150 / 150 Output Total 1999 Balance 300 / 300 540 / 540 150 / 150 Weight 47 kg Intake: IV 1450 / 1450 300 / 300 150 / 150 D5W Inj 1,000 ML @ 75 mls/hr IV 1000 / 1000 .CONT .[id number] EVA Rx#:[id number] Levaquin 750 mg Premix Inj 150 150 / 150 150 / 150 ML @ 100 mls/hr IV.SIG Q24H EVA Rx#:[id number] Magnesium Sulfate 1 gm/D5W 100 200 / 200 ml Premix 100 ML @ 100 mls/hr IV.SIG Q1H EVA Rx#:[id number] KCl 20 mEq Premix Inj 20 meq In 100 / 100 300 / 300 100 ml @ 50 mls/hr IV.SIG Q2H EVA Rx#:[id number] Oral 850 / 850 240 / 240 Output: Urine 1999 Other: # Voids 8 # Incontinent Voids 12 Date of Last Bowel Movement 07/06/18 07/07/18 07/07/18 # Bowel Movements 2 # Incontinent Bowel Movements 4 Narrative: GENERAL: Alert, NAD. SKIN: Warm and dry. HEAD: Normocephalic. EYES: No scleral icterus. No injection or drainage. NECK: Supple, trachea midline. No JVD or lymphadenopathy. CARDIOVASCULAR: Regular rate and rhythm without murmurs, gallops, or rubs. RESPIRATORY: Breath sounds equal bilaterally. No accessory muscle use. GASTROINTESTINAL: Abdomen soft, non-tender, nondistended. MUSCULOSKELETAL: No cyanosis, or edema. BACK: Nontender without obvious deformity. No CVA tenderness. Results - Labs CBC & Chem 7: 07/06/18 04:51 07/06/18 08:08 Microbiology 07/03/18 03:00 Blood - Peripheral Aerobic Blood Culture - Preliminary No growth in 4 days 07/03/18 03:00 Blood - Peripheral Anaerobic Blood Culture - Preliminary No growth in 4 days 07/03/18 02:55 Blood - Peripheral Aerobic Blood Culture - Preliminary No growth in 4 days 07/03/18 02:55 Blood - Peripheral Anaerobic Blood Culture - Preliminary No growth in 4 days Assessment and Plan - Assessment (1) Sepsis Code(s): A41.9 - Sepsis, unspecified organism Status: Acute (2) PNA (pneumonia) Code(s): J18.9 - Pneumonia, unspecified organism Status: Acute (3) GI bleed Code(s): K92.2 - Gastrointestinal hemorrhage, unspecified Status: Acute (4) COPD (chronic obstructive pulmonary disease) Code(s): J44.9 - Chronic obstructive pulmonary disease, unspecified Status: Acute (5) Elevated troponin Code(s): R74.8 - Abnormal levels of other serum enzymes Status: Acute - Plan This is a 72-year-old female with a history of dementia who presented with abdominal pain was found to have acute diverticulitis as well as a questionable GI bleed. She was admitted to the medical floor and started on Levaquin and Zosyn. Throughout the morning she developed worsening hypotension with lactic acidosis. She was given 2 L IV fluid bolus which initially did not respond to and she was emergently transferred to the ICU. Once patient was transferred to ICU, she did not require any pressors, her hemodynamic status improved. She was observed in the ICU overnight (07/03/2018) and subsequently care was transferred back to hospitalist service. Severe sepsis (HR 105, Resp 27, Lactic acid 2.7, Pneumonia, Diverticulitis). Acute diverticulitis Community acquired pneumonia - Patient is currently on Nasal cannula. Wean down O2 to keep O2 sat > 90% - Continue Levaquin 750mg IV Qday and Flagyl 500mg PO TID. - Levaquin will cover CAP and Levaquin/Flagyl combo will cover Diverticulitis - Okay to transfer to the floor. Currently on mechanical soft diet. - WBC improved from 21.6K --> 10.7 Mild hypernatremia Hypokalemia - Potassium replaced. Will check BMP today - Na improved from 148 --> 141. Upper GI bleed - discontinued Octreotide drip. - Protonix 40mg PO - GI is following. When medically stable, patient will likely need EGD. - Patient is already on Levaquin. - EGD when medically stable. Colonoscopy in 6 weeks. Mild agitation - will continue Seroquel 25mg BID. Agitation is resolved. Transfer to the floor today. PT recommends SNF. Apparently, patient's son wants her back home with hospice. I attempted to call the contact numbers on the chart. No answer. Full code. SCDs.
[2018-07-08 04:25] LABS: Calcium 7.9 mg/dL (8.5-10.1); Carbon Dioxide 26.5 meq/L (21.0-32.0); Potassium 4.2 meq/L (3.5-5.1)
[2018-07-08] MEDS: Chlorhexidine Gluconate 2% 1 Pack (2 Cloths) TOPICAL SCH (05:31)
[2018-07-08] MEDS: metroNIDAZOLE 500 MG Tablet PO SCH ×3 (07:21→21:33)
[2018-07-08] MEDS: QUEtiapine 25 MG Tablet PO SCH ×2 (08:18→20:10)
[2018-07-08] MEDS: Senna/Docusate Sodium 8.6/50 MG Tablet PO SCH ×2 (08:18→20:10)
[2018-07-08] MEDS: Potassium Chloride 25 MEQ Effervescent Tablet PO SCH ×2 (08:18→20:09)
--- NOTE | 2018-07-08 23:05 | P.PN ---
Subjective Interval history: Follow-up for severe sepsis, pneumonia, diverticulitis. Patient is doing well. No acute concerns. Remains pleasant. I discussed with patient's son who will pick her up tomorrow. Patient's son states that patient expressed her desire very clearly before that she would like to stay home. He provides barrel polisher care. Patient will go back under hospice care at home. Physical Exam Vital signs: Vital Signs 07/07/18 23:00 07/08/18 00:00 07/08/18 01:00 Temperature 98.4 F Pulse Rate 81 81 81 Respiratory Rate 51 H 23 26 H Blood Pressure 146/71 H Pulse Oximetry 91 L 07/08/18 02:00 07/08/18 03:00 07/08/18 04:00 Temperature 98.8 F Pulse Rate 84 81 86 Respiratory Rate 23 20 18 Blood Pressure 154/70 H 166/75 H Pulse Oximetry 91 L 95 07/08/18 05:00 07/08/18 06:00 07/08/18 06:43 Temperature Pulse Rate 84 79 79 Respiratory Rate 18 19 Blood Pressure 137/63 Pulse Oximetry 99 91 L 07/08/18 07:00 07/08/18 08:00 07/08/18 09:00 Temperature 98.1 F Pulse Rate 74 76 78 Respiratory Rate 19 22 28 H Blood Pressure 168/74 H Pulse Oximetry 99 100 93 L 07/08/18 09:04 07/08/18 09:22 07/08/18 10:00 Temperature Pulse Rate 79 80 Respiratory Rate 28 H 32 H Blood Pressure 114/61 89/52 L Pulse Oximetry 98 95 07/08/18 11:00 07/08/18 12:00 07/08/18 13:00 Temperature 98.3 F Pulse Rate 80 85 86 Respiratory Rate 28 H 18 Blood Pressure 136/62 111/57 L Pulse Oximetry 99 100 07/08/18 14:00 07/08/18 15:00 07/08/18 16:00 Temperature 99.0 F Pulse Rate 85 84 81 Respiratory Rate 21 Blood Pressure 145/65 H Pulse Oximetry 95 07/08/18 17:00 07/08/18 18:00 07/08/18 18:57 Temperature 98.8 F Pulse Rate 80 81 88 Respiratory Rate 16 Blood Pressure 133/60 Pulse Oximetry 100 07/08/18 20:00 Temperature 98.1 F Pulse Rate 84 Respiratory Rate 21 Blood Pressure 155/65 H Pulse Oximetry 90 L Intake & Output 07/08/18 07/08/18 07/09/18 06:59 18:59 06:59 Intake Total 300 / 300 150 / 150 Output Total 250 / 250 750 / 750 Balance 50 / 50 -600 / -600 Weight 46 kg 46.3 kg Intake: IV 150 / 150 Levaquin 750 mg Premix Inj 150 150 / 150 ML @ 100 mls/hr IV.SIG Q24H EVA Rx#:[id number] Oral 300 / 300 Output: Urine 250 / 250 750 / 750 Other: # Incontinent Voids 3 Date of Last Bowel Movement 07/07/18 07/08/18 # Bowel Movements 1 Weight On Admission 46.3 kg Narrative: GENERAL: Alert, NAD. SKIN: Warm and dry. HEAD: Normocephalic. EYES: No scleral icterus. No injection or drainage. NECK: Supple, trachea midline. No JVD or lymphadenopathy. CARDIOVASCULAR: Regular rate and rhythm without murmurs, gallops, or rubs. RESPIRATORY: Breath sounds equal bilaterally. No accessory muscle use. GASTROINTESTINAL: Abdomen soft, non-tender, nondistended. MUSCULOSKELETAL: No cyanosis, or edema. BACK: Nontender without obvious deformity. No CVA tenderness. Results - Labs CBC & Chem 7: 07/06/18 04:51 07/08/18 02:57 Laboratory Results - last 24 hr 07/08/18 02:57 Sodium 141 Potassium 4.2 D Chloride 107 Carbon Dioxide 26.5 Anion Gap 8 BUN 9 Creatinine 0.70 Estimated GFR 83 L Random Glucose 95 Calcium 7.9 L Microbiology 07/03/18 03:00 Blood - Peripheral Aerobic Blood Culture - Final No growth in 5 days 07/03/18 03:00 Blood - Peripheral Anaerobic Blood Culture - Final No growth in 5 days 07/03/18 02:55 Blood - Peripheral Aerobic Blood Culture - Final No growth in 5 days 07/03/18 02:55 Blood - Peripheral Anaerobic Blood Culture - Final No growth in 5 days - Imaging Abdomen/Pelvis CT 07/03/18 02:52 CONCLUSION: 1. Findings consistent with moderate sigmoid diverticulitis. No perforation or abscess at this time. Consider colonoscopy following appropriate course of treatment given the long segment involvement to exclude possible malignancy. 2. Moderate gastric distention. 3. Moderate stool in the rectum. 4. 9 mm calcification in the posterior right bladder near the UVJ. No significant right-sided hydronephrosis. 5. 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 Generally, sub-2 cm visceral artery aneurysms are not treated. 6. Indeterminate density 3.3 cm cystic lesion in the posterior mid left kidney. Consider 6 month follow-up ultrasound exam. 7. L2 compression fracture of unknown chronicity given the lack of recent prior exams. Status post cement augmentation at L4. Chest X-Ray 07/03/18 02:55 CONCLUSION: 1. Patchy airspace disease in the left lower lobe concerning for pneumonia given history . Assessment and Plan - Assessment (1) Sepsis Code(s): A41.9 - Sepsis, unspecified organism Status: Acute (2) PNA (pneumonia) Code(s): J18.9 - Pneumonia, unspecified organism Status: Acute (3) GI bleed Code(s): K92.2 - Gastrointestinal hemorrhage, unspecified Status: Acute (4) COPD (chronic obstructive pulmonary disease) Code(s): J44.9 - Chronic obstructive pulmonary disease, unspecified Status: Acute (5) Elevated troponin Code(s): R74.8 - Abnormal levels of other serum enzymes Status: Acute - Plan This is a 72-year-old female with a history of dementia who presented with abdominal pain was found to have acute diverticulitis as well as a questionable GI bleed. She was admitted to the medical floor and started on Levaquin and Zosyn. Throughout the morning she developed worsening hypotension with lactic acidosis. She was given 2 L IV fluid bolus which initially did not respond to and she was emergently transferred to the ICU. Once patient was transferred to ICU, she did not require any pressors, her hemodynamic status improved. She was observed in the ICU overnight (07/03/2018) and subsequently care was transferred back to hospitalist service. Severe sepsis (HR 105, Resp 27, Lactic acid 2.7, Pneumonia, Diverticulitis). Acute diverticulitis Community acquired pneumonia - Patient is currently on Nasal cannula. Wean down O2 to keep O2 sat > 90% - Continue Levaquin 750mg IV Qday and Flagyl 500mg PO TID. - Levaquin will cover CAP and Levaquin/Flagyl combo will cover Diverticulitis - Okay to transfer to the floor. Currently on mechanical soft diet. - WBC improved from 21.6K --> 10.7 Mild hypernatremia Hypokalemia - Potassium replaced. Potassium improved from 2.8 --> 4.2. - Na improved from 148 --> 141. Upper GI bleed - discontinued Octreotide drip. - Protonix 40mg PO - Patient is already on Levaquin. - Hemoglobin stable. Will refer patient to outpatient GI for EGD and Colonoscopy in 6 weeks. Mild agitation - will continue Seroquel 25mg BID. Agitation is resolved. Placement: Discussed with patient's son on 07/08/2018. He would like to take her home on 07/09/2018. Respecting mother's previously expressed desire, he does not want to send her to SNF. However, I will have 3008 form ready for patient to take home if in case they change their mind. Full code. SCDs.
--- NOTE | 2018-07-08 23:19 | P.DCO ---
- Diagnosis (2) Pneumonia - Physical Therapy Order: Evaluate and treat, Improve ambulation, Strength and gait training - Occupational Therapy Order: Evaluate and treat, Improve ADL, Gross motor coordination, Fine motor coordination - Home Health Nursing Order: Signs/symptoms of disease process, Oxygen administration education, Nursing assessment with vital signs - Case Management Consult No - Certification I have seen patient Maia Banegas on 07/08/18. My clinical findings support the need for the requested home health care services because: Patient has SOB, Deconditioned with increased weakness, Medication compliance is questionable, Limited ability to care for self, Need for psychosocial assistance, High risk of falls, Infection with risk of complications I certify that my clinical findings support that this patient is homebound because: Impaired cognitive ability/safety, Unsteady gait/balance, Unsafe to leave home unassisted, Need for psychosocial assistance, Non-ambulatory: confined to bed or chair, Unable to use public transportation (2) Pneumonia Qualifiers: Pneumonia type: due to unspecified organism Laterality: unspecified laterality Lung location: unspecified part of lung Qualified Code(s): J18.9 - Pneumonia, unspecified organism
[2018-07-09] MEDS: Chlorhexidine Gluconate 2% 1 Pack (2 Cloths) TOPICAL SCH (04:06)
[2018-07-09] MEDS: metroNIDAZOLE 500 MG Tablet PO SCH ×2 (05:36→13:01)
--- NOTE | 2018-07-09 08:31 | P.DS ---
Date of admission: 07/03/18 05:10 Primary care physician: UNKNOWN Brief History from admission: This is a 72-year-old female with a PMH of HTN, COPD and Dementia who was sent to the ER from SNF for episode of coffee-ground emesis and hypoxia. Pt unable to provide much history due to dementia. Per report, pt also noted to have Temp 102, upon EMS arrival, O2 sat 70's. Pt with no c/o chest pain or SOB. On arrival, BP 136/68, HR 100% on NRM, currently 91% on 2L NC. WBC 21.6. Hemoglobin 9.4, previous and 9.2 on 05-05. INR 1.1. Chemistry essentially unremarkable. Lactic Acid 2.7. Troponin 0.48. CXR with patchy airspace disease left lower lobe concerning for pneumonia. CT Abdomen/Pelvis moderate sigmoid diverticulitis, no perforation or abscess, moderate gastric distention. S/p Vanc/Zosyn in ER, currently on Protonix/Octreotide gtt. Patient update on day of discharge: Patient is doing well. No acute concerns. Discussed with GI today - Patient's Hgb is stable. She can be discharged with outpatient follow up with GI. DS: Diagnosis - Discharge Diagnosis (1) Dementia Status: Acute (2) Pneumonia Status: Acute (3) Elevated troponin Status: Acute (4) Sepsis Status: Acute (5) PNA (pneumonia) Status: Acute (6) GI bleed Status: Acute (7) COPD (chronic obstructive pulmonary disease) Status: Acute DS: Medications - Discharge Medications Prescriptions: amlodipine 5 mg PO DAILY #30 tab levofloxacin [Levaquin] 750 mg PO DAILY #2 tab metronidazole 500 mg PO Q8HR #6 tab quetiapine 25 mg PO BID #60 tab DS: Summary Hospital Course: This is a 72-year-old female with a history of dementia who presented with abdominal pain was found to have acute diverticulitis as well as a questionable GI bleed. She was admitted to the medical floor and started on Levaquin and Zosyn. Throughout the morning she developed worsening hypotension with lactic acidosis. She was given 2 L IV fluid bolus which initially did not respond to and she was emergently transferred to the ICU. Once patient was transferred to ICU, she did not require any pressors, her hemodynamic status improved. She was observed in the ICU overnight (07/03/2018) and subsequently care was transferred back to hospitalist service. Severe sepsis (HR 105, Resp 27, Lactic acid 2.7, Pneumonia, Diverticulitis). Acute diverticulitis Community acquired pneumonia - Patient is currently on Nasal cannula. Wean down O2 to keep O2 sat > 90% - Continue Levaquin 750mg IV Qday and Flagyl 500mg PO TID. Will continue for few more days. - Levaquin will cover CAP and Levaquin/Flagyl combo will cover Diverticulitis - Discussed with GI who cleared for discharge since Hgb is stable. - WBC improved from 21.6K --> 10.7 Mild hypernatremia Hypokalemia - Potassium replaced. Potassium improved from 2.8 --> 4.2. - Na improved from 148 --> 141. Upper GI bleed - discontinued Octreotide drip. - Protonix 40mg PO - Patient is already on Levaquin. - Hemoglobin stable. Will refer patient to outpatient GI for EGD and Colonoscopy in the next few weeks. Mild agitation - will continue Seroquel 25mg BID. Agitation is resolved. Placement: Discussed with patient's son on 07/08/2018. He would like to take her home on 07/09/2018. Respecting mother's previously expressed desire, he does not want to send her to SNF. Will arrange home health. Patient was under hospice care before and will likely resume once she goes back home. - Time Spent with Patient Total time spent providing and/or coordinating discharge services: Greater than 30 minutes - Quality: VTE Deep Vein Thrombosis/Pulmonary Embolism Present on Admission: No Exam Vital signs: Vital Signs 07/08/18 09:00 07/08/18 09:04 07/08/18 09:22 Temperature Pulse Rate 78 79 Respiratory Rate 28 H 28 H Blood Pressure 114/61 Pulse Oximetry 93 L 98 95 07/08/18 10:00 07/08/18 11:00 07/08/18 12:00 Temperature 98.3 F Pulse Rate 80 80 85 Respiratory Rate 32 H 28 H 18 Blood Pressure 89/52 L 136/62 111/57 L Pulse Oximetry 99 100 07/08/18 13:00 07/08/18 14:00 07/08/18 15:00 Temperature Pulse Rate 86 85 84 Respiratory Rate Blood Pressure Pulse Oximetry 07/08/18 16:00 07/08/18 17:00 07/08/18 18:00 Temperature 99.0 F Pulse Rate 81 80 81 Respiratory Rate 21 Blood Pressure 145/65 H Pulse Oximetry 95 07/08/18 18:57 07/08/18 20:00 07/09/18 00:00 Temperature 98.8 F 98.1 F 99.1 F Pulse Rate 88 81 83 Respiratory Rate 16 21 19 Blood Pressure 133/60 155/65 H 131/62 Pulse Oximetry 100 90 L 99 07/09/18 04:00 Temperature 98.4 F Pulse Rate 79 Respiratory Rate 18 Blood Pressure 136/69 Pulse Oximetry 98 Intake & Output 07/08/18 07/09/18 07/09/18 18:59 06:59 18:59 Intake Total 150 / 150 341 / 341 Output Total 750 / 750 Balance -600 / -600 341 / 341 Weight 45.8 kg Intake: IV 150 / 150 Levaquin 750 mg Premix Inj 150 150 / 150 ML @ 100 mls/hr IV.SIG Q24H EVA Rx#:[id number] Oral 341 / 341 Output: Urine 750 / 750 Other: # Incontinent Voids 1 Date of Last Bowel Movement 07/08/18 # Bowel Movements 1 Weight On Admission 46.3 kg Narrative: GENERAL: Alert, NAD. SKIN: Warm and dry. HEAD: Normocephalic. EYES: No scleral icterus. No injection or drainage. NECK: Supple, trachea midline. No JVD or lymphadenopathy. CARDIOVASCULAR: Regular rate and rhythm without murmurs, gallops, or rubs. RESPIRATORY: Breath sounds equal bilaterally. No accessory muscle use. GASTROINTESTINAL: Abdomen soft, non-tender, nondistended. MUSCULOSKELETAL: No cyanosis, or edema. BACK: Nontender without obvious deformity. No CVA tenderness. Results Procedures completed during hospitalization: None. - Impressions ITS Impressions Abdomen/Pelvis CT 07/03/18 02:52 CONCLUSION: 1. Findings consistent with moderate sigmoid diverticulitis. No perforation or abscess at this time. Consider colonoscopy following appropriate course of treatment given the long segment involvement to exclude possible malignancy. 2. Moderate gastric distention. 3. Moderate stool in the rectum. 4. 9 mm calcification in the posterior right bladder near the UVJ. No significant right-sided hydronephrosis. 5. 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 Generally, sub-2 cm visceral artery aneurysms are not treated. 6. Indeterminate density 3.3 cm cystic lesion in the posterior mid left kidney. Consider 6 month follow-up ultrasound exam. 7. L2 compression fracture of unknown chronicity given the lack of recent prior exams. Status post cement augmentation at L4. Chest X-Ray 07/03/18 02:55 CONCLUSION: 1. Patchy airspace disease in the left lower lobe concerning for pneumonia given history . Discharge Plan - Discharge Disposition Patient Disposition: /Home Health Service - Discharge Condition Condition: Fair - Discharge Order Discharge Orders: Discharge Order (Routine); Ordered 07/08/18 Ordered By: Olvin Schmitt - Discharge Details Anticipated Discharge Date: 07/09/18 Discharge Comment: Discharge at 8:30AM. - Physicians Team Primary Care Provider: UNKNOWN, Attending Provider: Yuri Cooper Other Providers: Zo Rebolledo MD ; Jayme Gómez MD ; [employer] ; [facility]
[2018-07-09 08:46] VITALS: RESP 16
[2018-07-09] MEDS: QUEtiapine 25 MG Tablet PO SCH (09:43)
[2018-07-09] MEDS: Potassium Chloride 25 MEQ Effervescent Tablet PO SCH (09:43)
[2018-07-09] MEDS: Senna/Docusate Sodium 8.6/50 MG Tablet PO SCH (09:44)
--- NOTE | 2018-07-09 11:52 | P.PNGI ---
Subjective Interval history: Patient resting in bed soundly with eyes closed. Awakens easily and denies any nausea vomiting. Denies difficulty swallowing coughing or choking. Denies any abdominal pain and states she is tolerating diet well. Patient currently wearing O2 at 3 L nasal cannula. Per patient's nurse, plan for discharge home today with son to hospice care. <Lois Lassiter - Last Filed: 07/09/18 11:53> Physical Exam Vital signs: Vital Signs 07/08/18 12:00 07/08/18 13:00 07/08/18 14:00 Temperature 98.3 F Pulse Rate 85 86 85 Respiratory Rate 18 Blood Pressure 111/57 L Pulse Oximetry 100 07/08/18 15:00 07/08/18 16:00 07/08/18 17:00 Temperature 99.0 F Pulse Rate 84 81 80 Respiratory Rate 21 Blood Pressure 145/65 H Pulse Oximetry 95 07/08/18 18:00 07/08/18 18:57 07/08/18 20:00 Temperature 98.8 F 98.1 F Pulse Rate 81 88 81 Respiratory Rate 16 21 Blood Pressure 133/60 155/65 H Pulse Oximetry 100 90 L 07/09/18 00:00 07/09/18 04:00 07/09/18 08:00 Temperature 99.1 F 98.4 F 99.1 F Pulse Rate 83 79 88 Respiratory Rate 19 18 16 Blood Pressure 131/62 136/69 132/62 Pulse Oximetry 99 98 99 Intake & Output 07/08/18 07/09/18 07/09/18 18:59 06:59 18:59 Intake Total 150 / 150 341 / 341 Output Total 750 / 750 Balance -600 / -600 341 / 341 Weight 45.8 kg Intake: IV 150 / 150 Levaquin 750 mg Premix Inj 150 150 / 150 ML @ 100 mls/hr IV.SIG Q24H [facility] Rx#:[id number] Oral 341 / 341 Output: Urine 750 / 750 Other: # Incontinent Voids 1 Date of Last Bowel Movement 07/08/18 # Bowel Movements 1 Weight On Admission 46.3 kg - Constitutional no acute distress - Routine HEENT Exam Head: Present: normocephalic - Routine Respiratory Exam Present: CTA bilaterally. Absent: respiratory distress - Routine Cardiovascular Exam Present: RRR - Routine Abdominal Exam Present: soft, normoactive bowel sounds. Absent: tenderness, distended, guarding, firm - Routine Extremities Exam Absent: cyanosis, edema - Routine Skin Exam Present: dry, warm. Absent: jaundice - Routine Neurological Exam Present: alert - Routine Psychiatric Exam Present: normal affect, cooperative <Lois Lassiter - Last Filed: 07/09/18 11:53> Vital signs: Vital Signs 07/08/18 13:00 07/08/18 14:00 07/08/18 15:00 Temperature Pulse Rate 86 85 84 Respiratory Rate Blood Pressure Pulse Oximetry 07/08/18 16:00 07/08/18 17:00 07/08/18 18:00 Temperature 99.0 F Pulse Rate 81 80 81 Respiratory Rate 21 Blood Pressure 145/65 H Pulse Oximetry 95 07/08/18 18:57 07/08/18 20:00 07/09/18 00:00 Temperature 98.8 F 98.1 F 99.1 F Pulse Rate 88 81 83 Respiratory Rate 16 21 19 Blood Pressure 133/60 155/65 H 131/62 Pulse Oximetry 100 90 L 99 07/09/18 04:00 07/09/18 08:00 Temperature 98.4 F 99.1 F Pulse Rate 79 82 Respiratory Rate 18 16 Blood Pressure 136/69 132/62 Pulse Oximetry 98 99 Intake & Output 07/08/18 07/09/18 07/09/18 18:59 06:59 18:59 Intake Total 150 / 150 341 / 341 Output Total 750 / 750 Balance -600 / -600 341 / 341 Weight 45.8 kg Intake: IV 150 / 150 Levaquin 750 mg Premix Inj 150 150 / 150 ML @ 100 mls/hr IV.SIG Q24H [facility] Rx#:[id number] Oral 341 / 341 Output: Urine 750 / 750 Other: # Incontinent Voids 1 Date of Last Bowel Movement 07/08/18 # Bowel Movements 1 Weight On Admission 46.3 kg <Ivan Dean - Last Filed: 07/09/18 13:00> Results - Labs CBC & Chem 7: 07/06/18 04:51 07/08/18 02:57 Microbiology 07/03/18 03:00 Blood - Peripheral Aerobic Blood Culture - Final No growth in 5 days 07/03/18 03:00 Blood - Peripheral Anaerobic Blood Culture - Final No growth in 5 days 07/03/18 02:55 Blood - Peripheral Aerobic Blood Culture - Final No growth in 5 days 07/03/18 02:55 Blood - Peripheral Anaerobic Blood Culture - Final No growth in 5 days - Procedures None. <Lois Lassiter - Last Filed: 07/09/18 11:53> - Labs CBC & Chem 7: 07/06/18 04:51 07/08/18 02:57 Microbiology 07/03/18 03:00 Blood - Peripheral Aerobic Blood Culture - Final No growth in 5 days 07/03/18 03:00 Blood - Peripheral Anaerobic Blood Culture - Final No growth in 5 days 07/03/18 02:55 Blood - Peripheral Aerobic Blood Culture - Final No growth in 5 days 07/03/18 02:55 Blood - Peripheral Anaerobic Blood Culture - Final No growth in 5 days <Ivan Dean E - Last Filed: 07/09/18 13:00> Assessment and Plan (1) Diverticulitis Status: Acute Code(s): K57.92 - Diverticulitis of intestine, part unspecified , without perforation or abscess without bleeding (2) GI bleed Status: Acute Code(s): K92.2 - Gastrointestinal hemorrhage, unspecified - Plan 07/09/18- patient resting soundly in bed. Awakens easily and denies any discomfort. She denies difficulty swallowing, nausea or vomiting. Denies abdominal pain. Discharge planning for patient to return home today with son and hospice care per RN. No reported noted bleeding. Plan: -Monitor for any signs of bleeding -Continue PPI -Supportive care -Stable for discharge from GI standpoint -Patient to follow-up with GI for any further concerns This patient has been seen by myself and Dr. Dean and this note is written on his behalf <Lois Lassiter - Last Filed: 07/09/18 11:53> (1) Diverticulitis Status: Acute Code(s): K57.92 - Diverticulitis of intestine, part unspecified , without perforation or abscess without bleeding (2) GI bleed Status: Acute Code(s): K92.2 - Gastrointestinal hemorrhage, unspecified - Plan Patient seen and examined Agree with above Continue current supportive care Monitor labs Follow-up with GI post discharge <Ivan Dean - Last Filed: 07/09/18 13:00>
[2018-07-09 13:19] VITALS: BP 107/50; TEMP 98.3; O2SAT 100
[2018-07-09 14:37] VITALS: PULSE 83
== END 2018-07-09 14:43 | disposition hospice, home (50) ==
LOC: NEPE 02:23 → NEDA 05:10 → HCIS 06:37 → HIMC 10:05 → N04 07-08 18:51
PROVIDERS: ADMIT Hospitalist; ATTEND Hospitalist